=== PATIENT | female | born 1955 | race Caucasian/White ===

== ENCOUNTER 2018-11-12 06:51 | Inpatient (IN) ==
--- NOTE | 2018-11-12 07:10 | Emergency Department Note ---
Disposition Clinical Impression: Neurological deficit present, Acute cystitis with hematuria Disposition: Admitted As Inpatient Condition: Good Time of Disposition: 10:04 General Adult HPI - General Chief complaint: ED Neuro Symptoms/Deficit Stated complaint: weakness Time Seen by Provider: 11/12/18 07:00 Source: patient, EMS Limitations: no limitations Nursing Notes Reviewed: Yes Vital Signs Reviewed: Yes - History of Present Illness Pain Scale: 0 - Related Data Home Medications Medication Instructions Recorded Confirmed Metoprolol XL (24 HR) Succ [Toprol 50 mg PO DAILY 08/21/16 11/12/18 Xl] Aspirin Enteric Coated [Aspirin EC] 81 mg PO DAILY 01/11/17 11/12/18 Allopurinol [Zyloprim 300 MG] 300 mg PO DAILY 11/12/18 11/12/18 Atorvastatin [Lipitor] 20 mg PO HS 11/12/18 11/12/18 Brimonidine 0.2% [Alphagan] 1 drop BOTH EYES TID 11/12/18 11/12/18 Cetirizine HCl [Allergy Relief] 10 mg PO DAILY 11/12/18 11/12/18 DULoxetine [Cymbalta] 30 mg PO DAILY 11/12/18 11/12/18 Latanoprost 0.005% Eye Drop 0.005 % BOTH EYES HS 11/12/18 11/12/18 Lisinopril-HCTZ 20-12.5 [Prinzide 12.5 mg PO DAILY 11/12/18 11/12/18 20-12.5] Magnesium Oxide [Mag-Oxide 400 mg PO HS PRN 11/12/18 11/12/18 Magnesium] Montelukast [Singulair] 10 mg PO DAILY 11/12/18 11/12/18 Omeprazole [PriLOSEC] 40 mg PO DAILY 11/12/18 11/12/18 Oxybutynin [Ditropan] 10 mg PO DAILY 11/12/18 11/12/18 Ranitidine HCl [Acid Barrel Roller Operator] 150 mg PO HS 11/12/18 11/12/18 Previous Rx's Medication Instructions Recorded Folic Acid 1 mg PO DAILY #30 tablet 10/14/18 Allergies Allergy/AdvReac Type Severity Reaction Status Date / Time acetaminophen Allergy Hives Verified 08/19/18 13:56 [From [facility]-N 100] ibuprofen Allergy See Verified 08/19/18 13:56 Comments Penicillins Allergy Hives Verified 08/19/18 13:56 propoxyphene Allergy Hives Verified 08/19/18 13:56 [From [facility]-N 100] Past Medical History - Past Medical History Medical history: Reports: asthma, hypertension, other Surgical history: Reports: cholecystectomy, hip replacement, other Psychiatric history: Reports: anxiety, depression EDUCATION MANAGER history: Reports: no EDUCATION MANAGER history - Social History Smoking Status: Never smoker Smokeless Tobacco Status: No Alcohol use: Reports: none Drug use: Reports: none Physical Exam - General Limitations: no limitations General appearance: alert, in no apparent distress Course Vital Signs Temperature 99.8 F H 11/12/18 06:56 Pulse Rate 131 11/12/18 06:56 Respiratory Rate 20 11/12/18 06:56 Blood Pressure 124/81 11/12/18 06:56 O2 Sat by Pulse Oximetry 93 11/12/18 06:56 Temperature 100.4 F H 11/12/18 16:20 Pulse Rate 88 11/12/18 16:20 Respiratory Rate 18 11/12/18 16:20 Blood Pressure 129/76 11/12/18 16:20 O2 Sat by Pulse Oximetry 94 11/12/18 16:20 Oxygen Delivery Oxygen Delivery Nasal Cannula Medical Decision Making - MDM Narrative Medical decision making narrative: I reviewed the residents documentation and agree with the residents assessment and plan of care. I have personally had face to face time with the patient. (Brief History, Brief Exam, and MDM) I personally supervised and was present for the sy/critical portions of the following procedures completed by the SENIOR RESEARCH FELLOW: EKG was reviewed and interpreted by Adi Alvarez under my supervision, agree with his interpretation. Head CT 11/12/18 07:03 IMPRESSION: No acute intracranial abnormality. D/ / 11/12/2018 07:36:12 Brice Min MD / [facility] Interpreting Provider: Brice Min MD Chest X-Ray 11/12/18 07:07 IMPRESSION: 1. No active pulmonary disease. D/ / Dillon Lin MD / Dillon Lin MD Interpreting Provider: Dillon Lin MD Patient CT is negative. Tele-stroke evaluated her and decided that she was not having likely an acute stroke. They thought she could be admitted here waiting on her labs and will speak with neurology and hospitalist. 0900 hrs.: We will start her on aspirin since she has elevated troponin with her TIA symptoms. Hospitalist as accepted her to his service. - Lab Data Result diagrams: 11/12/18 07:05 11/12/18 07:05 Lab Results 11/12/18 11/12/18 11/12/18 Range/Units 07:05 07:05 07:05 WBC 10.6 (4.3-11.1) K/mcL RBC 3.81 L (3.82-4.97) M/mcL Hgb 10.6 L (11.5-15.4) g/dL Hct 32.2 L (35.3-44.9) % MCV 84.5 (83.0-100.0) fL MCH 27.8 L (28.0-33.3) pg MCHC 32.9 (31.6-35.5) g/dL RDW 14.3 (11.5-14.5) % Plt Count 164 (140-400) K/mcL MPV 9.9 (9.4-12.4) fL PT 14.9 H (9.4-12.1) Seconds INR 1.3 APTT 29.2 (26.0-36.0) Seconds VBG pH (7.32-7.42) pH Units VBG pCO2 (41-51) mmHg VBG pO2 (25-50) mmHg VBG HCO3 (21-27) mEq/L Sodium 130 L (136-145) mEq/L Potassium 3.5 (3.5-5.1) mEq/L Chloride 93 L (98-107) mEq/L Carbon Dioxide 25 (23-29) mEq/L BUN 24 H (8-23) mg/dL Creatinine 1.63 H (0.60-1.20) mg/dL Est GFR ( Amer) 39 L (> 60) Est GFR (Non-Af Amer) 32 L (> 60) BUN/Creatinine Ratio 15 (6-26) Glucose 453 H (70-105) mg/dL Calculated Osmolality 294 (280-300) Lactic Acid (0.5-2.2) mmol/L Calcium 8.7 (8.6-10.3) mg/dL Magnesium 1.2 L (1.6-2.6) mg/dL Troponin I 0.04 H* (< 0.04) ng/mL Beta-Hydroxybutyric Acd (0.02-0.27) mmol/L Urine Color (Yellow) Urine Clarity (Clear) Urine pH (5.0-8.0) pH Units Ur Specific [place] (1.010-1.025) Urine Protein (Neg-Trace) mg/dL Urine Glucose (UA) (Normal) mg/dL Urine Ketones (Negative) mg/dL Urine Blood (Negative) Urine Nitrite (Negative) Urine Bilirubin (Negative) Urine Urobilinogen (Normal) mg/dL Ur Leukocyte Esterase (Negative) Urine Microscopic RBC (0-3) per hpf Urine Microscopic WBC (0-3) per hpf Ur Squamous Epith Cells (None-Few) per lpf Urine Bacteria (None-Few) per hpf Hyaline Casts (None-Few) per lpf Ur Culture Indicated? (NO) 11/12/18 11/12/18 11/12/18 Range/Units 07:47 08:08 08:46 WBC (4.3-11.1) K/mcL RBC (3.82-4.97) M/mcL Hgb (11.5-15.4) g/dL Hct (35.3-44.9) % MCV (83.0-100.0) fL MCH (28.0-33.3) pg MCHC (31.6-35.5) g/dL RDW (11.5-14.5) % Plt Count (140-400) K/mcL MPV (9.4-12.4) fL PT (9.4-12.1) Seconds INR APTT (26.0-36.0) Seconds VBG pH 7.51 H (7.32-7.42) pH Units VBG pCO2 29 L (41-51) mmHg VBG pO2 196 H (25-50) mmHg VBG HCO3 23 (21-27) mEq/L Sodium (136-145) mEq/L Potassium (3.5-5.1) mEq/L Chloride (98-107) mEq/L Carbon Dioxide (23-29) mEq/L BUN (8-23) mg/dL Creatinine (0.60-1.20) mg/dL Est GFR ( Amer) (> 60) Est GFR (Non-Af Amer) (> 60) BUN/Creatinine Ratio (6-26) Glucose (70-105) mg/dL Calculated Osmolality (280-300) Lactic Acid 1.2 (0.5-2.2) mmol/L Calcium (8.6-10.3) mg/dL Magnesium (1.6-2.6) mg/dL Troponin I (< 0.04) ng/mL Beta-Hydroxybutyric Acd 0.49 H (0.02-0.27) mmol/L Urine Color (Yellow) Urine Clarity (Clear) Urine pH (5.0-8.0) pH Units Ur Specific [place] (1.010-1.025) Urine Protein (Neg-Trace) mg/dL Urine Glucose (UA) (Normal) mg/dL Urine Ketones (Negative) mg/dL Urine Blood (Negative) Urine Nitrite (Negative) Urine Bilirubin (Negative) Urine Urobilinogen (Normal) mg/dL Ur Leukocyte Esterase (Negative) Urine Microscopic RBC (0-3) per hpf Urine Microscopic WBC (0-3) per hpf Ur Squamous Epith Cells (None-Few) per lpf Urine Bacteria (None-Few) per hpf Hyaline Casts (None-Few) per lpf Ur Culture Indicated? (NO) 11/12/18 11/12/18 Range/Units 10:01 10:53 WBC (4.3-11.1) K/mcL RBC (3.82-4.97) M/mcL Hgb (11.5-15.4) g/dL Hct (35.3-44.9) % MCV (83.0-100.0) fL MCH (28.0-33.3) pg MCHC (31.6-35.5) g/dL RDW (11.5-14.5) % Plt Count (140-400) K/mcL MPV (9.4-12.4) fL PT (9.4-12.1) Seconds INR APTT (26.0-36.0) Seconds VBG pH (7.32-7.42) pH Units VBG pCO2 (41-51) mmHg VBG pO2 (25-50) mmHg VBG HCO3 (21-27) mEq/L Sodium (136-145) mEq/L Potassium (3.5-5.1) mEq/L Chloride (98-107) mEq/L Carbon Dioxide (23-29) mEq/L BUN (8-23) mg/dL Creatinine (0.60-1.20) mg/dL Est GFR ( Amer) (> 60) Est GFR (Non-Af Amer) (> 60) BUN/Creatinine Ratio (6-26) Glucose (70-105) mg/dL Calculated Osmolality (280-300) Lactic Acid (0.5-2.2) mmol/L Calcium (8.6-10.3) mg/dL Magnesium (1.6-2.6) mg/dL Troponin I 0.03 (< 0.04) ng/mL Beta-Hydroxybutyric Acd (0.02-0.27) mmol/L Urine Color Yellow (Yellow) Urine Clarity Cloudy A (Clear) Urine pH 5.0 (5.0-8.0) pH Units Ur Specific [place] 1.029 H (1.010-1.025) Urine Protein 30 H (Neg-Trace) mg/dL Urine Glucose (UA) >=1000 H (Normal) mg/dL Urine Ketones Negative (Negative) mg/dL Urine Blood Moderate H (Negative) Urine Nitrite Negative (Negative) Urine Bilirubin Negative (Negative) Urine Urobilinogen Normal (Normal) mg/dL Ur Leukocyte Esterase Moderate H (Negative) Urine Microscopic RBC 5-15 H (0-3) per hpf Urine Microscopic WBC TNTC H (0-3) per hpf Ur Squamous Epith Cells Many H (None-Few) per lpf Urine Bacteria Many H (None-Few) per hpf Hyaline Casts Few (None-Few) per lpf Ur Culture Indicated? YES A (NO) Attestation Statement - Attestation Attestation: This documentation is done with the assistance of Dragon dictation. Despite efforts made to ensure accuracy, there may be inaccuracies in oil well service unit operator or s pelling and typographical errors. I have personally performed a face to face evaluation on this patient. I have reviewed and agree with the care plan. History and Exam by me shows: Patient presents today with weakness on the left which seems intermittent. She says this started at 8:00 last night. She has no other focal deficits. Has no headache. No blurry vision. Not any difficulty walking. Physical psychiatric history. Because she is within 24 hours of the protocol for [facility] we will call her stroke alert. She is outside the window for TPA. We will await CT and tele-radiology evaluation with [facility]. Patient was seen today by Adi Alvarez the nurse practitioner and myself I agree with his evaluation management plan.
--- NOTE | 2018-11-12 07:10 | Emergency Department Note ---
Disposition Clinical Impression: Neurological deficit present, Acute cystitis with hematuria Disposition: Admitted As Inpatient Condition: Good Referrals: Mabel Bundy DO [Primary Care Provider] - Forms: ED Satisfaction Letter Time of Disposition: 13:42 Neuro HPI - General Chief Complaint: ED Neuro Symptoms/Deficit Stated Complaint: weakness Time Seen by Provider: 11/12/18 07:00 Source: patient, EMS Mode of arrival: EMS Limitations: no limitations Nursing Notes Reviewed: Yes Vital Signs Reviewed: Yes - History of Present Illness HPI Narrative: Alert and oriented nontoxic-appearing 63-year-old female with a history of poorly controlled diabetes, hypertension, and hyperlipidemia presents from home by EMS for evaluation of a sensation of slurred speech, blurred vision from the left eye, and numbness/tingling/weakness of the left upper and lower extremities. She states that symptoms had an abrupt onset yesterday evening at 8:00 PM. When her home health nurse arrived to her residence this morning, she discussed her symptoms with the nurse and was advised to present emergency department further evaluation. She denies any injury or trauma. She denies any chest pain or shortness of breath. She denies any abdominal pain, nausea, vomiting. She does state that she has had a mild intermittent nonproductive c ough. She states that she is felt generally ill for the past couple of days. She complains of subjective fevers at home as well. Onset of Symptoms Date: 11/11/18 Onset of Symptoms Time: 20:00 Location: speech, dysarthria, left arm, left leg, other (Blurred vision, left eye) Severity: mild Quality: weakness, numbness, tingling Symptoms Improving: No Improves with: none Worsens with: none Context: sudden onset On Anticoagulants: No Associated symptoms: Reports: cough, fever/chills. Denies: chest pain, nausea/vomiting Treatments Prior to Arrival: none - Related Data Home Medications: Home Medications Medication Instructions Recorded Confirmed Metoprolol XL (24 HR) Succ [Toprol 50 mg PO DAILY 08/21/16 11/12/18 Xl] Aspirin Enteric Coated [Aspirin EC] 81 mg PO DAILY 01/11/17 11/12/18 Allopurinol [Zyloprim 300 MG] 300 mg PO DAILY 11/12/18 11/12/18 Atorvastatin [Lipitor] 20 mg PO HS 11/12/18 11/12/18 Brimonidine 0.2% [Alphagan] 1 drop BOTH EYES TID 11/12/18 11/12/18 Cetirizine HCl [Allergy Relief] 10 mg PO DAILY 11/12/18 11/12/18 DULoxetine [Cymbalta] 30 mg PO DAILY 11/12/18 11/12/18 Latanoprost 0.005% Eye Drop 0.005 % BOTH EYES HS 11/12/18 11/12/18 Lisinopril-HCTZ 20-12.5 [Prinzide 12.5 mg PO DAILY 11/12/18 11/12/18 20-12.5] Magnesium Oxide [Mag-Oxide 400 mg PO HS PRN 11/12/18 11/12/18 Magnesium] Montelukast [Singulair] 10 mg PO DAILY 11/12/18 11/12/18 Omeprazole [PriLOSEC] 40 mg PO DAILY 11/12/18 11/12/18 Oxybutynin [Ditropan] 10 mg PO DAILY 11/12/18 11/12/18 Ranitidine HCl [Acid Contract Driver] 150 mg PO HS 11/12/18 11/12/18 Previous Rx's Medication Instructions Recorded Folic Acid 1 mg PO DAILY #30 tablet 10/14/18 Allergies/Adverse Reactions: Allergies Allergy/AdvReac Type Severity Reaction Status Date / Time acetaminophen Allergy Hives Verified 08/19/18 13:56 [From Darvocet-N 100] ibuprofen Allergy See Verified 08/19/18 13:56 Comments Penicillins Allergy Hives Verified 08/19/18 13:56 propoxyphene Allergy Hives Verified 08/19/18 13:56 [From [facility]-N 100] All systems ED: reviewed and negative except as stated. Review of Systems: As Per HPI Constitutional: Reports: as per HPI, fever. Denies: chills, weakness, weight change Eyes: Reports: as per HPI, vision change. Denies: eye pain, eye discharge ENT ED: Denies: ear pain, throat pain, dental pain, hearing loss, epistaxis, congestion, dysphagia Cardiovascular: Denies: chest pain, palpitations, dyspnea on exertion, edema, syncope Respiratory: Reports: as per HPI, cough. Denies: dyspnea, wheezes, hemoptysis, stridor, sputum production Gastrointestinal: Denies: abdominal pain, nausea, vomiting, diarrhea, constipation, hematemesis, melena, hematochezia Genitourinary: Denies: dysuria, frequency, hematuria, discharge Musculoskeletal: Denies: back pain, neck pain, arthralgia, myalgia Integumentary: Denies: rash, abrasion, lesions Neurological: Reports: as per HPI, weakness, numbness, paresthesias, other (Blurred vision left eye, sensation of slurred speech.). Denies: headache, confusion, abnormal gait, vertigo Psychiatric: Denies: anxiety, depression, suicidal thoughts, homicidal thoughts, auditory hallucinations, visual hallucinations Endocrine: Denies: fatigue Hematological/Lymphatic: Denies: easy bleeding, easy bruising Allergic/Immunologic: Denies: facial swelling, urticaria Past Medical History - Past Medical History Attestation: Yes The following information was validated with the patient. 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 Absent: conjunctival inject ion - ENT ENT exam: mucous membranes moist - Neck Neck exam: Present: normal inspection, full ROM - Chest Chest inspection: Present: normal inspection, symmetric chest wall rise - Respiratory Respiratory exam: Present: normal lung sounds bilaterally. Absent: respiratory distress, wheezes, stridor, accessory muscle use, prolonged expiratory phase - Cardiovascular Cardiovascular exam: Present: regular rate, normal rhythm, normal heart sounds - Abdominal Exam Abdominal exam: Present: soft, Non-Tender, normal bowel sounds - Extremities Exam Extremities exam: Present: normal inspection, full ROM - Back Exam Back exam: Present: normal inspection - Neurological Exam Neurological exam: Present: alert, oriented X3 - Expanded Neurological Exam Patient oriented to: Present: person, place, time Speech: Present: fluid speech Cranial nerves: EOM function (II, III, IV, ): Normal Motor strength - LUE: 4/5 Motor strength - RUE: 5/5 Motor strength - LLE: 5/5 Motor strength - RLE: 5/5 Upper motor neuron exam: sensory extinction: Absent bilaterally Sensory exam upper extremity: light touch: Normal Sensory exam lower extremity: light touch: Abnormal Left (Hyperesthesia of the left lower extremity) Coma Scale Eye Opening: Spontaneous Coma Scale Motor Response: Obeys Commands Coma Scale Verbal Response: Oriented Coma Scale Total: 15 - Psychiatric Psychiatric exam: Present: normal affect, normal mood - Skin Skin exam: Present: warm, dry, intact, normal color. Absent: rash, cyanosis, diaphoresis, pallor, mottled Course Course Narrative: 07: Stroke alert called. Symptom onset 8:00 PM last night. She has an NIH stroke scale score of 2. The patient complains of a sensation of slurred speech, blurred vision from the left eye, and numbness/tingling/weakness of both the left upper and lower extremities. Her home medications were reviewed. She is on low-dose aspirin but no other anticoagulants. I have discussed this patient's case with Dr. Real, ED attending. He has had a [id number] evaluation with patient and agrees with this plan. 0722: I received a call from Dr. Min with [facility]. She reads the preliminary head CT as negative. No obvious hemorrhage or infarct. 0732: Telestroke conference completed with Dr. Pacheco, neurologist from [facility]. He recommends admission to the hospitalist service for complete stroke workup. No emergent interventions recommended at this time. The patient was involved with this decision and verbalizes an understanding of and agreement with this plan. 1340: I spoke with Dr. Berger of the hospitalist service who has accepted the patient for admission to the hospitalist care. Vital Signs Temperature 99.8 F H 11/12/18 06:56 Pulse Rate 131 11/12/18 06:56 Respiratory Rate 20 11/12/18 06:56 Blood Pressure 124/81 11/12/18 06:56 O2 Sat by Pulse Oximetry 93 11/12/18 06:56 Temperature 99.8 F H 11/12/18 07:15 Pulse Rate 93 11/12/18 12:18 Respiratory Rate 16 11/12/18 12:18 Blood Pressure 119/76 11/12/18 12:18 O2 Sat by Pulse Oximetry 97 11/12/18 12:18 Oxygen Delivery Oxygen Delivery Nasal Cannula Neuro Symptoms/Deficit - Medical Records Medical records reviewed: Yes I reviewed the patient's medical records. - Lab Data Lab results reviewed: Yes I reviewed the patient's lab results. Lab results narrative: Lab Results 11/12/18 11/12/18 11/12/18 Range/Units 07:05 07:05 07:05 WBC 10.6 (4.3-11.1) K/mcL RBC 3.81 L (3.82-4.97) M/mcL Hgb 10.6 L (11.5-15.4) g/dL Hct 32.2 L (35.3-44.9) % MCV 84.5 (83.0-100.0) fL MCH 27.8 L (28.0-33.3) pg MCHC 32.9 (31.6-35.5) g/dL RDW 14.3 (11.5-14.5) % Plt Count 164 (140-400) K/mcL MPV 9.9 (9.4-12.4) fL PT 14.9 H (9.4-12.1) Seconds INR 1.3 APTT 29.2 (26.0-36.0) Seconds VBG pH (7.32-7.42) pH Units VBG pCO2 (41-51) mmHg VBG pO2 (25-50) mmHg VBG HCO3 (21-27) mEq/L Sodium 130 L (136-145) mEq/L Potassium 3.5 (3.5-5.1) mEq/L Chloride 93 L (98-107) mEq/L Carbon Dioxide 25 (23-29) mEq/L BUN 24 H (8-23) mg/dL Creatinine 1.63 H (0.60-1.20) mg/dL Est GFR ( Amer) 39 L (> 60) Est GFR (Non-Af Amer) 32 L (> 60) BUN/Creatinine Ratio 15 (6-26) Glucose 453 H (70-105) mg/dL Calculated Osmolality 294 (280-300) Lactic Acid (0.5-2.2) mmol/L Calcium 8.7 (8.6-10.3) mg/dL Magnesium 1.2 L (1.6-2.6) mg/dL Troponin I 0.04 H* (< 0.04) ng/mL Beta-Hydroxybutyric Acd (0.02-0.27) mmol/L Urine Color (Yellow) Urine Clarity (Clear) Urine pH (5.0-8.0) pH Units Ur Specific Rudy (1.010-1.025) Urine Protein (Neg-Trace) mg/dL Urine Glucose (UA) (Normal) mg/dL Urine Ketones (Negative) mg/dL Urine Blood (Negative) Urine Nitrite (Negative) Urine Bilirubin (Negative) Urine Urobilinogen (Normal) mg/dL Ur Leukocyte Esterase (Negative) Urine Microscopic RBC (0-3) per hpf Urine Microscopic WBC (0-3) per hpf Ur Squamous Epith Cells (None-Few) per lpf Urine Bacteria (None-Few) per hpf Hyaline Casts (None-Few) per lpf Ur Culture Indicated? (NO) 11/12/18 11/12/18 11/12/18 Range/Units 07:47 08:08 08:46 WBC (4.3-11.1) K/mcL RBC (3.82-4.97) M/mcL Hgb (11.5-15.4) g/dL Hct (35.3-44.9) % MCV (83.0-100.0) fL MCH (28.0-33.3) pg MCHC (31.6-35.5) g/dL RDW (11.5-14.5) % Plt Count (140-400) K/mcL MPV (9.4-12.4) fL PT (9.4-12.1) Seconds INR APTT (26.0-36.0) Seconds VBG pH 7.51 H (7.32-7.42) pH Units VBG pCO2 29 L (41-51) mmHg VBG pO2 196 H (25-50) mmHg VBG HCO3 23 (21-27) mEq/L Sodium (136-145) mEq/L Potassium (3.5-5.1) mEq/L Chloride (98-107) mEq/L Carbon Dioxide (23-29) mEq/L BUN (8-23) mg/dL Creatinine (0.60-1.20) mg/dL Est GFR ( Amer) (> 60) Est GFR (Non-Af Amer) (> 60) BUN/Creatinine Ratio (6-26) Glucose (70-105) mg/dL Calculated Osmolality (280-300) Lactic Acid 1.2 (0.5-2.2) mmol/L Calcium (8.6-10.3) mg/dL Magnesium (1.6-2.6) mg/dL Troponin I (< 0.04) ng/mL Beta-Hydroxybutyric Acd 0.49 H (0.02-0.27) mmol/L Urine Color (Yellow) Urine Clarity (Clear) Urine pH (5.0-8.0) pH Units Ur Specific Rudy (1.010-1.025) Urine Protein (Neg-Trace) mg/dL Urine Glucose (UA) (Normal) mg/dL Urine Ketones (Negative) mg/dL Urine Blood (Negative) Urine Nitrite (Negative) Urine Bilirubin (Negative) Urine Urobilinogen (Normal) mg/dL Ur Leukocyte Esterase (Negative) Urine Microscopic RBC (0-3) per hpf Urine Microscopic WBC (0-3) per hpf Ur Squamous Epith Cells (None-Few) per lpf Urine Bacteria (None-Few) per hpf Hyaline Casts (None-Few) per lpf Ur Culture Indicated? (NO) 11/12/18 11/12/18 Range/Units 10:01 10:53 WBC (4.3-11.1) K/mcL RBC (3.82-4.97) M/mcL Hgb (11.5-15.4) g/dL Hct (35.3-44.9) % MCV (83.0-100.0) fL MCH (28.0-33.3) pg MCHC (31.6-35.5) g/dL RDW (11.5-14.5) % Plt Count (140-400) K/mcL MPV (9.4-12.4) fL PT (9.4-12.1) Seconds INR APTT (26.0-36.0) Seconds VBG pH (7.32-7.42) pH Units VBG pCO2 (41-51) mmHg VBG pO2 (25-50) mmHg VBG HCO3 (21-27) mEq/L Sodium (136-145) mEq/L Potassium (3.5-5.1) mEq/L Chloride (98-107) mEq/L Carbon Dioxide (23-29) mEq/L BUN (8-23) mg/dL Creatinine (0.60-1.20) mg/dL Est GFR ( Amer) (> 60) Est GFR (Non-Af Amer) (> 60) BUN/Creatinine Ratio (6-26) Glucose (70-105) mg/dL Calculated Osmolality (280-300) Lactic Acid (0.5-2.2) mmol/L Calcium (8.6-10.3) mg/dL Magnesium (1.6-2.6) mg/dL Troponin I 0.03 (< 0.04) ng/mL Beta-Hydroxybutyric Acd (0.02-0.27) mmol/L Urine Color Yellow (Yellow) Urine Clarity Cloudy A (Clear) Urine pH 5.0 (5.0-8.0) pH Units Ur Specific Rudy 1.029 H (1.010-1.025) Urine Protein 30 H (Neg-Trace) mg/dL Urine Glucose (UA) >=1000 H (Normal) mg/dL Urine Ketones Negative (Negative) mg/dL Urine Blood Moderate H (Negative) Urine Nitrite Negative (Negative) Urine Bilirubin Negative (Negative) Urine Urobilinogen Normal (Normal) mg/dL Ur Leukocyte Esterase Moderate H (Negative) Urine Microscopic RBC 5-15 H (0-3) per hpf Urine Microscopic WBC TNTC H (0-3) per hpf Ur Squamous Epith Cells Many H (None-Few) per lpf Urine Bacteria Many H (None-Few) per hpf Hyaline Casts Few (None-Few) per lpf Ur Culture Indicated? YES A (NO) Result diagrams: 11/12/18 07:05 11/12/18 07:05 Lab Results 11/12/18 11/12/18 11/12/18 Range/Units 07:05 07:05 07:05 WBC 10.6 (4.3-11.1) K/mcL RBC 3.81 L (3.82-4.97) M/mcL Hgb 10.6 L (11.5-15.4) g/dL Hct 32.2 L (35.3-44.9) % MCV 84.5 (83.0-100.0) fL MCH 27.8 L (28.0-33.3) pg MCHC 32.9 (31.6-35.5) g/dL RDW 14.3 (11.5-14.5) % Plt Count 164 (140-400) K/mcL MPV 9.9 (9.4-12.4) fL PT 14.9 H (9.4-12.1) Seconds INR 1.3 APTT 29.2 (26.0-36.0) Seconds VBG pH (7.32-7.42) pH Units VBG pCO2 (41-51) mmHg VBG pO2 (25-50) mmHg VBG HCO3 (21-27) mEq/L Sodium 130 L (136-145) mEq/L Potassium 3.5 (3.5-5.1) mEq/L Chloride 93 L (98-107) mEq/L Carbon Dioxide 25 (23-29) mEq/L BUN 24 H (8-23) mg/dL Creatinine 1.63 H (0.60-1.20) mg/dL Est GFR ( Amer) 39 L (> 60) Est GFR (Non-Af Amer) 32 L (> 60) BUN/Creatinine Ratio 15 (6-26) Glucose 453 H (70-105) mg/dL Calculated Osmolality 294 (280-300) Lactic Acid (0.5-2.2) mmol/L Calcium 8.7 (8.6-10.3) mg/dL Magnesium 1.2 L (1.6-2.6) mg/dL Troponin I 0.04 H* (< 0.04) ng/mL Beta-Hydroxybutyric Acd (0.02-0.27) mmol/L Urine Color (Yellow) Urine Clarity (Clear) Urine pH (5.0-8.0) pH Units Ur Specific Rudy (1.010-1.025) Urine Protein (Neg-Trace) mg/dL Urine Glucose (UA) (Normal) mg/dL Urine Ketones (Negative) mg/dL Urine Blood (Negative) Urine Nitrite (Negative) Urine Bilirubin (Negative) Urine Urobilinogen (Normal) mg/dL Ur Leukocyte Esterase (Negative) Urine Microscopic RBC (0-3) per hpf Urine Microscopic WBC (0-3) per hpf Ur Squamous Epith Cells (None-Few) per lpf Urine Bacteria (None-Few) per hpf Hyaline Casts (None-Few) per lpf Ur Culture Indicated? (NO) 11/12/18 11/12/18 11/12/18 Range/Units 07:47 08:08 08:46 WBC (4.3-11.1) K/mcL RBC (3.82-4.97) M/mcL Hgb (11.5-15.4) g/dL Hct (35.3-44.9) % MCV (83.0-100.0) fL MCH (28.0-33.3) pg MCHC (31.6-35.5) g/dL RDW (11.5-14.5) % Plt Count (140-400) K/mcL MPV (9.4-12.4) fL PT (9.4-12.1) Seconds INR APTT (26.0-36.0) Seconds VBG pH 7.51 H (7.32-7.42) pH Units VBG pCO2 29 L (41-51) mmHg VBG pO2 196 H (25-50) mmHg VBG HCO3 23 (21-27) mEq/L Sodium (136-145) mEq/L Potassium (3.5-5.1) mEq/L Chloride (98-107) mEq/L Carbon Dioxide (23-29) mEq/L BUN (8-23) mg/dL Creatinine (0.60-1.20) mg/dL Est GFR ( Amer) (> 60) Est GFR (Non-Af Amer) (> 60) BUN/Creatinine Ratio (6-26) Glucose (70-105) mg/dL Calculated Osmolality (280-300) Lactic Acid 1.2 (0.5-2.2) mmol/L Calcium (8.6-10.3) mg/dL Magnesium (1.6-2.6) mg/dL Troponin I (< 0.04) ng/mL Beta-Hydroxybutyric Acd 0.49 H (0.02-0.27) mmol/L Urine Color (Yellow) Urine Clarity (Clear) Urine pH (5.0-8.0) pH Units Ur Specific Rudy (1.010-1.025) Urine Protein (Neg-Trace) mg/dL Urine Glucose (UA) (Normal) mg/dL Urine Ketones (Negative) mg/dL Urine Blood (Negative) Urine Nitrite (Negative) Urine Bilirubin (Negative) Urine Urobilinogen (Normal) mg/dL Ur Leukocyte Esterase (Negative) Urine Microscopic RBC (0-3) per hpf Urine Microscopic WBC (0-3) per hpf Ur Squamous Epith Cells (None-Few) per lpf Urine Bacteria (None-Few) per hpf Hyaline Casts (None-Few) per lpf Ur Culture Indicated? (NO) 11/12/18 11/12/18 Range/Units 10:01 10:53 WBC (4.3-11.1) K/mcL RBC (3.82-4.97) M/mcL Hgb (11.5-15.4) g/dL Hct (35.3-44.9) % MCV (83.0-100.0) fL MCH (28.0-33.3) pg MCHC (31.6-35.5) g/dL RDW (11.5-14.5) % Plt Count (140-400) K/mcL MPV (9.4-12.4) fL PT (9.4-12.1) Seconds INR APTT (26.0-36.0) Seconds VBG pH (7.32-7.42) pH Units VBG pCO2 (41-51) mmHg VBG pO2 (25-50) mmHg VBG HCO3 (21-27) mEq/L Sodium (136-145) mEq/L Potassium (3.5-5.1) mEq/L Chloride (98-107) mEq/L Carbon Dioxide (23-29) mEq/L BUN (8-23) mg/dL Creatinine (0.60-1.20) mg/dL Est GFR ( Amer) (> 60) Est GFR (Non-Af Amer) (> 60) BUN/Creatinine Ratio (6-26) Glucose (70-105) mg/dL Calculated Osmolality (280-300) Lactic Acid (0.5-2.2) mmol/L Calcium (8.6-10.3) mg/dL Magnesium (1.6-2.6) mg/dL Troponin I 0.03 (< 0.04) ng/mL Beta-Hydroxybutyric Acd (0.02-0.27) mmol/L Urine Color Yellow (Yellow) Urine Clarity Cloudy A (Clear) Urine pH 5.0 (5.0-8.0) pH Units Ur Specific Rudy 1.029 H (1.010-1.025) Urine Protein 30 H (Neg-Trace) mg/dL Urine Glucose (UA) >=1000 H (Normal) mg/dL Urine Ketones Negative (Negative) mg/dL Urine Blood Moderate H (Negative) Urine Nitrite Negative (Negative) Urine Bilirubin Negative (Negative) Urine Urobilinogen Normal (Normal) mg/dL Ur Leukocyte Esterase Moderate H (Negative) Urine Microscopic RBC 5-15 H (0-3) per hpf Urine Microscopic WBC TNTC H (0-3) per hpf Ur Squamous Epith Cells Many H (None-Few) per lpf Urine Bacteria Many H (None-Few) per hpf Hyaline Casts Few (None-Few) per lpf Ur Culture Indicated? YES A (NO) - Radiology Data Radiology results reviewed: Yes I reviewed the patient's radiology results. Head CT 11/12/18 07:03 IMPRESSION: No acute intracranial abnormality. D/ / 11/12/2018 07:36:12 Brice Min MD / joe Interpreting Provider: Brice Min MD Chest X-Ray 11/12/18 07:07 IMPRESSION: 1. No active pulmonary disease. D/ / Dillon Lin MD / Dillon Lin MD Interpreting Provider: Dillon Lin MD - EKG Data EKG attestation: Yes I reviewed and interpreted this EKG. EKG results narrative: EKG shows a sinus tachycardia at a rate of 129 bpm. UT interval 157, QRS duration 96, QT/QTc interval 316/463. No ectopy noted. No ST elevation or significant depressions. Aside from rate, no significant change in morphology of compared to an EKG dated from 09/27/15. NIH Stroke Scale - Level of Consciousness LOC: Alert - LOC Questions LOC Questions: Answers both correctly - LOC Commands LOC Commands: Performs both correctly - Best Gaze Best Gaze: Normal - Visual Visual: No visual loss - Facial Palsy Facial Palsy: Normal - Motor Arms Motor Arm-Left: No drift for 10 seconds Motor Arm-Right: No drift for 10 seconds - Motor Legs Motor Leg-Left: Drift, does NOT hit bed Motor Leg-Right: No drift for 5 seconds - Limb Ataxia Limb Ataxia: Normal, No Ataxia - Sensory Sensory: Normal - Best Language Best Language: No aphasia - Dysarthria Dysarthria: Mild, slurs some words - Extinction and Inattention Extinction and Inattention: Normal - NIHSS Total Score NIHSS Total Score: 2 TPA Checklist - LKW: 3-4.5 hrs Add. Warnings/Precautions Patient/family understanding: The patient/family members have been counseled and understood the risk, benefit, and alternatives of treatment.
[2018-11-12 07:21] LABS: Hematocrit 32.2 % (35.3-44.9); Hemoglobin 10.6 g/dL (11.5-15.4); Mean Corpuscular HGB Conc 32.9 g/dL (31.6-35.5); Mean Corpuscular Hemoglobin 27.8 pg (28.0-33.3); Mean Corpuscular Volume 84.5 fL (83.0-100.0); Mean Platelet Volume 9.9 fL (9.4-12.4); Platelet Count 164 K/mcL (140-400); Red Blood Count 3.81 M/mcL (3.82-4.97); Red Cell Distribution Width 14.3 % (11.5-14.5); White Blood Count 10.6 K/mcL (4.3-11.1)
[2018-11-12 07:28] LABS: INR 1.3; Prothrombin Time 14.9 Seconds (9.4-12.1)
[2018-11-12 07:31] LABS: Activated Partial Thrombo Time 29.2 Seconds (26.0-36.0)
[2018-11-12] MEDS ORDERED: Aspirin 81 MG TAB.CHEW PO ONE (07:33)
[2018-11-12] MEDS ORDERED: 0.9 % Sodium Chloride 1,000 ML IVC ONE ×2 (07:36→09:09)
[2018-11-12 07:41] LABS: Calcium 8.7 mg/dL (8.6-10.3); Potassium 3.5 mEq/L (3.5-5.1)
[2018-11-12 07:47] LABS: Troponin I 0.04 ng/mL (< 0.04)
[2018-11-12 08:53] LABS: VBG HCO3 23 mEq/L (21-27); VBG PCO2 29 mmHg (41-51); VBG PH 7.51 pH Units (7.32-7.42); VBG PO2 196 mmHg (25-50)
[2018-11-12] MEDS ORDERED: Insulin Regular, Human 100 UNIT/ML SQ ONE ×2 (09:09→11:00)
[2018-11-12 10:07] LABS: Magnesium 1.2 mg/dL (1.6-2.6)
[2018-11-12 10:11] LABS: Bilirubin,Urine Negative (Negative); Blood,Urine Moderate (Negative); Clarity,Urine Cloudy (Clear); Color,Urine Yellow (Yellow); Glucose,Urine (UA) >=1000 mg/dL (Normal); Ketones,Urine Negative (Negative); Leukocyte Esterase,Urine Moderate (Negative); Nitrite,Urine Negative (Negative); Protein,Urine 30 mg/dL (Neg-Trace); Specific Gravity,Urine 1.029 (1.010-1.025); Urobilinogen,Urine Normal (Normal)
[2018-11-12 10:13] LABS: Bacteria,Urine Many per hpf (None-Few); Hyaline Casts,Urine Few per lpf (None-Few); Squamous Epithelial Cell,Urine Many per lpf (None-Few); WBC,Urine TNTC per hpf (0-3)
--- NOTE | 2018-11-12 10:16 | Internal Med History&Physical ---
Date of Encounter: 11/12/18 Time of Encounter: 10:15 Internal Medicine - H&P: HPI History of present illness: 63-year-old female with a history of poorly controlled diabetes, hypertension, and hyperlipidemia, chronic kidney disease who presents from home for his strokelike symptoms. The patient stated that she had a sudden onset of blurred vision in the left eye is associated with numbness, tingling and weakness of the left and lower upper extremity as well as slurred speech. She stated that her symptoms started last night. Stroke alert was called and [facility] team was consulted, they stated that patient pattern of symptoms is not consistent possible CVA or TIA , and in any circumstances patient is out of window for thrombolytics. The patient is complaining of increased urgency and increased frequency of urination. She denies burning sensation or blood per urine. She denies abdominal pain, nausea, vomiting, chest pain, shortness of breath, palpitation, orthopnea, paroxysmal nocturnal dyspnea or progressive worsening of lower extremity edema. The patient was evaluated by the ER staff and her CT scan of the head was no significant abnormalities. Her laboratory data was damian dent for hyponatremia and elevated creatinine above her baseline as well as hyperglycemia. Urine analysis was obtained and was evident for possible urine urinary tract infection. The patient was admitted for further evaluation and management of possible TIA as well as UTI. Past Med Surg Social Fam HX - Past Medical History Medical history: asthma, diabetes, hypertension, other Additional medical history: "heart problems", "constant diarrhea" Psychiatric history: anxiety, depression - Past Surgical History Surgical History: cholecystectomy, hip replacement, other Additional surgical history: right kidney removed, bilat eye surgery - Social History Smoking Status: Never smoker Smokeless Tobacco Status: No Alcohol use: none Drug use: none - Family History Mother Hx Family Endocrine Disorder: Yes (DM) Internal Medicine - H&P: Meds Metoprolol XL (24 HR) Succ [Toprol Xl] 50 mg PO DAILY 08/21/16 [History] Aspirin Enteric Coated [Aspirin EC] 81 mg PO DAILY 01/11/17 [History] Folic Acid 1 mg PO DAILY #30 tablet 10/14/18 [Rx] Allopurinol [Zyloprim 300 MG] 300 mg PO DAILY 11/12/18 [History] Brimonidine 0.2% [Alphagan] 1 drop BOTH EYES TID 11/12/18 [History] Cetirizine HCl [Allergy Relief] 10 mg PO DAILY 11/12/18 [History] DULoxetine [Cymbalta] 30 mg PO DAILY 11/12/18 [History] Latanoprost [Xalatan] 2.5 ml OP DAILY #0 11/12/18 [History] Lisinopril-HCTZ 20-12.5 [Prinzide 20-12.5] 12.5 mg PO DAILY 11/12/18 [History] Magnesium Oxide [Mag-Oxide Magnesium] 400 mg PO HS PRN 11/12/18 [History] Montelukast [Singulair] 10 mg PO DAILY 11/12/18 [History] Omeprazole [PriLOSEC] 40 mg PO DAILY 11/12/18 [History] Oxybutynin [Ditropan] 10 mg PO DAILY 11/12/18 [History] Ranitidine HCl [Acid [employer]] 150 mg PO HS 11/12/18 [History] Amlodipine Besylate 10 mg PO DAILY 11/13/18 [History] Cholestyramine 4 gm PO BID 11/13/18 [History] Ciprofloxacin HCl [Cipro] 500 mg PO BID #8 tablet 11/13/18 [Rx] Diphenoxylate/Atropine [Lomotil 2.5 mg/0.025 mg] 2 each PO QID PRN 11/13/18 [History] Fluticasone Propionate Nasal [Flonase] 50 mcg NS DAILY 11/13/18 [History] Insulin Glargine,Hum.rec.anlog [Lantus Solostar] 10 unit SQ HS #2 insuln.pen 11/14/18 [Rx] glipiZIDE [Glucotrol] 5 mg PO BIDWM #60 tablet 11/14/18 [Rx] Allergy/AdvReac Type Severity Reaction Status Date / Time acetaminophen Allergy Hives Verified 11/13/18 13:03 [From Darvocet-N 100] ibuprofen Allergy See Verified 11/13/18 13:03 Comments Penicillins Allergy Hives Verified 11/13/18 13:03 propoxyphene Allergy Hives Verified 11/13/18 13:03 [From Darvocet-N 100] All Systems PM: A 10-system review of systems was performed and is negative for pertinent find ings except as documented above in the HPI. - Constitutional Vitals: Temp Pulse Resp BP Pulse Ox 99.8 F H 128 20 116/73 98 11/12/18 07:15 11/12/18 08:55 11/12/18 08:55 11/12/18 08:55 11/12/18 08:55 General appearance: Present: A&O X 3 Exam: ` - Head Head exam: Present: atraumatic, normocephalic - Neck Neck exam general surgery: Present: supple, trachea midline. Absent: lymphadenopathy - Respiratory Respiratory exam: Present: CTAB. Absent: accessory muscle use, rales, rhonchi, wheezes - Cardiovascular Cardiovascular exam: Present: RRR, +S1, +S2. Absent: diastolic murmur, gallop, rubs, systolic murmur - GI/Abdominal GI/Abdominal exam: Present: normal bowel sounds, soft, no peritoneal signs. Absent: distended, tenderness - Extremities Exam Extremities exam: Present: warm, radial pulses palpable and symmetrical. Absent: calf tenderness, cyanotic, pedal edema - Neurological Exam Neurological exam: Present: CN II-XII intact, oriented X3, no focal deficits. Absent: pronater drift, facial droop, speech deficit Internal Med - H&P Results - Labs CBC & Chem 7: 11/14/18 04:10 11/14/18 04:10 Labs: Short CBC 11/12/18 Range/Units 07:05 WBC 10.6 (4.3-11.1) K/mcL Hgb 10.6 L (11.5-15.4) g/dL Hct 32.2 L (35.3-44.9) % Plt Count 164 (140-400) K/mcL BMP 11/12/18 07:05 Sodium 130 L Potassium 3.5 Chloride 93 L Carbon Dioxide 25 BUN 24 H Creatinine 1.63 H Glucose 453 H Calcium 8.7 Cardiac Enzymes 11/12/18 Range/Units 07:05 Troponin I 0.04 H* (< 0.04) ng/mL Urine 11/12/18 Range/Units 10:01 Urine Color Yellow (Yellow) Urine Clarity Cloudy A (Clear) Urine pH 5.0 (5.0-8.0) pH Units Ur Specific Tangent 1.029 H (1.010-1.025) Urine Protein 30 H (Neg-Trace) mg/dL Urine Glucose (UA) >=1000 H (Normal) mg/dL - ABG Interpretation ABG results: 11/12/18 08:46 VBG pH 7.51 H VBG pCO2 29 L VBG pO2 196 H VBG HCO3 23 - Impressions ITS Impressions Head CT 11/12/18 07:03 IMPRESSION: No acute intracranial abnormality. D/ / 11/12/2018 07:36:12 Brice Min MD / joe Interpreting Provider: Brice Min MD Chest X-Ray 11/12/18 07:07 IMPRESSION: 1. No active pulmonary disease. D/ / Dillon Lin MD / Dillon Lin MD Interpreting Provider: Dillon Lin MD - Assessment and Plan (1) Stroke-like symptoms Status: Chronic Assessment and plan: The presents from home for his strokelike symptoms. The patient stated that she had a sudden onset of blurred vision in the left eye is associated with numbness, tingling and weakness of the left and lower upper extremity as well as slurred speech. She stated that her symptoms started last night. Stroke alert was called and [facility] team was consulted, they stated that patient pattern of symptoms is not consistent possible CVA or TIA , and in any circumstances patient is out of window for thrombolytics. PLAN: -CPP x 2 q 8 hr -EKG now and in AM, telemetry -ASA - Echo - Carotid Doppler - MRI (2) UTI (urinary tract infection) Status: Acute Assessment and plan: Discussions the ER I notice that the patient has low-grade fever, I requested urine analysis as well as chest x-ray to confirm source of infection. Urine analysis is suggestive of UTI, ER staff started ceftriaxone, blood culture and urine culture were obtained, the patient is allergic to penicillin was reported episodes of severe shortness of breath and swelling as well as rash, we will follow up on the preliminary culture report and adjust antibiotics accordingly. Qualifiers: Urinary tract infection type: acute cystitis Hematuria presence: without hematuria Qualified Code(s): N30.00 - Acute cystitis without hematuria (3) COPD (chronic obstructive pulmonary disease) Status: Chronic Assessment and plan: We will start the patient on DuoNeb when necessary Qualifiers: COPD type: unspecified COPD Qualified Code(s): J44.9 - Chronic obstructive pulmonary disease, unspecified (4) Anemia Status: Acute Assessment and plan: Likely secondary to chronic disease we will continue to monitor H&H Qualifiers: Anemia type: due to chronic kidney disease Chronic kidney disease stage: stage 3 (moderate) Qualified Code(s): N18.3 - Chronic kidney disease, stage 3 (moderate); D63.1 - Anemia in chronic kidney disease (5) Diabetes mellitus type 2 in obese Status: Acute Assessment and plan: The patient stated that she used to be on metformin however her primary care physician decided to take off it due to her kidney impairment, she is currently not in any diabetic medication and her blood glucose was above 400s during her evaluation in the ER. Will start the patient insulin sliding scale with coverage and adjust her diuretic medication regimen prior to discharge (6) Hyponatremia Status: Acute Assessment and plan: Most likely secondary to volume depletion will start patient on IV hydration with isotonic saline and order hyponatremia workup , if Na is not corrected with hydration (7) CKD (chronic kidney disease) Status: Acute Qualifiers: Chronic kidney disease stage: stage 3 (moderate) Qualified Code(s): N18.3 - Chronic kidney disease, stage 3 (moderate) (8) Elevated troponin Status: Acute Assessment and plan: The patient is chest pain-free, denies shortness of breath or diaphoresis, no reported ischemic ST-T wave changes, most like 2/2 demand isthmia in sitting of CKD - Time Spent With Patient Total time spent is greater than 50% in coordination of care (as documented) at patient's floor/unit and/or counseling patient:
[2018-11-12] MEDS ORDERED: cefTRIAXone 1,000 MG in 0.9 % Sodium Chloride Mini Bag 100 ML IVPB ONE (10:29)
[2018-11-12] MEDS ORDERED: Naloxone 0.4 MG/ML INJ IVP PRN (10:38)
[2018-11-12] MEDS ORDERED: Ondansetron 4 MG/2 ML VIAL IVP PRN (10:38)
[2018-11-12] MEDS: 0.9 % Sodium Chloride 1,000 ML IVC SCH (16:40)
[2018-11-12] MEDS ORDERED: *HR* Dextrose 50 % in Water (Syg) 50 ML SYRINGE IVP PRN (17:06)
[2018-11-12] MEDS ORDERED: Dextrose Gel 15 GM/37.5 ML TUBE PO PRN ×2 (17:06)
[2018-11-12] MEDS ORDERED: D5% in Water 1,000 ML IVC PRN (17:06)
[2018-11-12] MEDS: Insulin LISPRO 300 UNITS/3 ML VIAL SQ SCH ×2 (17:30→22:11)
[2018-11-12] MEDS ORDERED: Insulin LISPRO 300 UNITS/3 ML VIAL SQ ONE (17:46)
[2018-11-12] MEDS ORDERED: Magnesium Oxide 400 MG TABLET PO PRN (18:28)
[2018-11-12 18:41] LABS: Estimated Average Glucose 255 mg/dl
--- NOTE | 2018-11-12 20:21 | Electrocardiograph Report ---
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
[2018-11-12] MEDS ORDERED: traMADol 50 MG TABLET PO ONE (20:25)
[2018-11-12 20:48] LABS: Acinetobacter baumannii by PCR Not Detected (Not Detect); Candida albicans by PCR Not Detected (Not Detect); Candida glabrata by PCR Not Detected (Not Detect); Candida krusei by PCR Not Detected (Not Detect); Candida parapsilosis by PCR Not Detected (Not Detect); Candida tropicalis by PCR Not Detected (Not Detect); Enterobacter cloacae Cmplx PCR Not Detected (Not Detect); Enterobacteriaceae by PCR DETECTED (Not Detect); Enterococcus by PCR Not Detected (Not Detect); Escherichia coli by PCR DETECTED (Not Detect); Klebsiella oxytoca by PCR Not Detected (Not Detect); Klebsiella pneumoniae by PCR Not Detected (Not Detect); Proteus by PCR Not Detected (Not Detect); Pseudomonas aeruginosa by PCR Not Detected (Not Detect); Serratia marcescens by PCR Not Detected (Not Detect); Staphylococcus aureus by PCR Not Detected (Not Detect); Staphylococcus by PCR Not Detected (Not Detect); Streptococcus agalactiae(B)PCR Not Detected (Not Detect); Streptococcus by PCR Not Detected (Not Detect); Streptococcus pneumoniae PCR Not Detected (Not Detect); Streptococcus pyogenes (A) PCR Not Detected (Not Detect); blaKPC Carbapenem-Resist Gene Not Detected (Not Detect); mecA Methicillin-Resist Gene Not Detected (Not Detect); vanA/B Vancomycin-Resist Genes Not Detected (Not Detect)
[2018-11-12] MEDS ORDERED: cefTRIAXone 1,000 MG in Water for inj. (sterile) 20 ML 10 ML IVPB ONE (20:58)
[2018-11-12] MEDS ORDERED: Acetaminophen IV 500 MG/50 ML INFUS..BTL IVPB ONE (21:07)
[2018-11-12] MEDS: Famotidine 20 MG TABLET PO SCH (22:11)
[2018-11-13 03:13] LABS: Basophils % 0.1 %; Eosinophils % 0.1 %; Hematocrit 29.9 % (35.3-44.9); Hemoglobin 9.7 g/dL (11.5-15.4); Immature Granulocytes % 0.5 % (0-4); Lymphocytes # 0.7 K/mcL (0.6-4.6); Lymphocytes % 9.5 %; Mean Corpuscular HGB Conc 32.4 g/dL (31.6-35.5); Mean Corpuscular Hemoglobin 27.4 pg (28.0-33.3); Mean Corpuscular Volume 84.5 fL (83.0-100.0); Monocytes # 0.7 K/mcL (0.0-1.3); Monocytes % 8.8 %; Neutrophils # 6.3 K/mcL (1.6-8.9); Platelet Count 141 K/mcL (140-400); Red Blood Count 3.54 M/mcL (3.82-4.97); Red Cell Distribution Width 14.3 % (11.5-14.5); White Blood Count 7.8 K/mcL (4.3-11.1)
[2018-11-13 03:20] LABS: INR 1.3; Prothrombin Time 14.3 Seconds (9.4-12.1)
[2018-11-13 03:22] LABS: Activated Partial Thrombo Time 26.1 Seconds (26.0-36.0)
[2018-11-13 03:35] LABS: Chol/HDL Ratio 2.4 (0-4.9); Platelet Estimate Normal (Normal)
[2018-11-13 03:37] LABS: Albumin/Globulin Ratio 1.2 (1.1-2.2); Bilirubin,Total 0.4 mg/dL (0.3-1.0); Calcium 8.1 mg/dL (8.6-10.3); Chol/HDL Ratio 2.4 (0-4.9); Globulin 2.6 g/dL (2.4-3.5); Magnesium 1.3 mg/dL (1.6-2.6); Phosphorous 2.6 mg/dL (2.7-4.5); Potassium 3.1 mEq/L (3.5-5.1); Total Protein 5.6 g/dL (6.4-8.9)
--- NOTE | 2018-11-13 05:06 | Event Note ---
Date of Encounter: 11/12/18 Time of Encounter: 20:53 Alerted by patient's nurse WILMAN Pruitt that patient's blood cultures were positive for Escherichia coli. Patient had received one-time dose of Rocephin at 11:00 and ED. I ordered a second dose of 1000 mg Rocephin IVPB to be given now with subsequent dosing of 2000 mg twice a day IVPB starting tomorrow at 06:00. Patient febrile currently and not responding to by mouth Tylenol. One-time order for affirmative IVPB placed. Lactic acid ordered. Patient currently meeting sepsis criteria. Nurse instructed to monitor this patient very closely and alert me immediately of any adverse changes or signs of increasing infection/sepsis.
[2018-11-13] MEDS: 0.9 % Sodium Chloride 1,000 ML IVC SCH (05:46)
[2018-11-13] MEDS ORDERED: cefTRIAXone 2,000 MG in Water for inj. (sterile) 20 ML 20 ML IVPB SCH (06:00)
--- NOTE | 2018-11-13 06:52 | Event Note ---
Date of Encounter: 11/13/18 Time of Encounter: 06:00 Blood Cx is postive for E.Coli, source of infection most likely UTI, patient has severe allergy to penicillins, including swelling ,difficulty breathing. Cross-reactivity with penicillins is possibility. We will D/c ceftriaxone, and we will start Ciprofloxacin 400 mg IV BID and follow up Cx for further ABs regimen adjustment.
[2018-11-13] MEDS: Insulin LISPRO 300 UNITS/3 ML VIAL SQ SCH ×4 (08:22→20:41)
[2018-11-13] MEDS: Folic Acid 1 MG TABLET PO SCH (08:24)
[2018-11-13] MEDS: Aspirin Enteric Coated 81 MG Tablet PO SCH (08:24)
[2018-11-13] MEDS: Aspirin 81 MG TAB.CHEW PO SCH (08:24)
[2018-11-13] MEDS: Loratadine 10 MG TABLET PO SCH (08:24)
[2018-11-13] MEDS: Metoprolol XL (24 HR) Succ 50 MG TAB.ER.24H PO SCH (08:24)
[2018-11-13] MEDS ORDERED: Lisinopril-HCTZ 20-12.5mg TABLET PO SCH (09:00)
--- NOTE | 2018-11-13 11:41 | Internal Med Progress Note ---
Hospitalist Progress Note - Encounter Date of Encounter: 11/13/18 Time of Encounter: 11:39 - Subjective Interval History: Pt was seen and examined at bed side. She denied any CP / SOB. Pt still c.o Left foot numbness x 1 week. She is more alert, awake and O x 3 Looks weak and lethargic - Exam Vitals: Temp Pulse Resp BP Pulse Ox 98.5 F 101 19 136/83 93 11/13/18 11:02 11/13/18 11:02 11/13/18 11:02 11/13/18 11:02 11/13/18 11:02 Exam: Gen: Alert, awake, Oriented to time,place and person..Looks weak and lethargic Chest: Diminished breath sounds B/L, No wheezing, No crackles, No rales Heart: S1S2+ RRR No murmurs Abd: Soft, NT, BS +, No organomegaly Ext: No edema, pulses are palpable, No calf tenderness Neuro : No acute focal neuro deficits noticed other than Left foot numbness Skin: No rash. - Assessment and Plan (1) Bacteremia due to Escherichia coli Current Visit: Yes Status: Acute Assessment and Plan: Due to UTI Cont IV Cipro cont symptomatic and supportive care Patient does need to stay in the hospital more than 2 midnights due to her com plex medical problems UTI with bacteremia and severe metabolic abnormalities. So we will change her to full admission today. I did review my colleague Dr. Berger's H & P including HPI, PMH, PSH, FH, SH, and ROS no changes noticed (2) Stroke-like symptoms Current Visit: Yes Status: Acute Assessment and Plan: MRI of Head - ruled out CVA Carotid doppler showed non-stenotic plaque Bilaterally her generalized weakness most likely due to UTI with the bacteremia (3) UTI (urinary tract infection) Current Visit: No Status: Acute Assessment and Plan: UA - abnormal Urine cx- G-ve rods Blood cx 2/ - E. Coli due to UTI on Cipro IV (4) Electrolyte abnormality Current Visit: Yes Status: Acute Assessment and Plan: Due to dehydration and UTI cont replacing Mg, K+ and PO4 (5) Elevated troponin Current Visit: Yes Status: Acute Assessment and Plan: Due to demand ischemia with UTI and Bacteremia Trended down 2 D Echo form 10/12 - WNL No need to repeat Echo again (6) COPD (chronic obstructive pulmonary disease) Current Visit: No Status: Chronic Assessment and Plan: Not in exacerbation on duoneb (7) Diabetes mellitus type 2 in obese Current Visit: No Status: Acute Assessment and Plan: on ADA diet on ISS Hb A1C 10.5 BS fairly controlled due to Bacteremia started her on Levemir (8) Hyponatremia Current Visit: Yes Status: Acute Assessment and Plan: Due to dehydration Improving (9) Anemia Current Visit: No Status: Acute Assessment and Plan: Likely secondary to chronic disease we will continue to monitor H&H (10) CKD (chronic kidney disease) Current Visit: Yes Status: Acute - Time Spent with Patient Total time spent is greater than 50% in coordination of care (as documented) at patient's floor/unit and/or counseling patient: Internal Medicine: Result - Labs CBC & Chem 7: 11/13/18 02:30 11/13/18 02:30 Labs: Short CBC 11/13/18 Range/Units 02:30 WBC 7.8 (4.3-11.1) K/mcL Hgb 9.7 L (11.5-15.4) g/dL Hct 29.9 L (35.3-44.9) % Plt Count 141 (140-400) K/mcL Neutrophils # 6.3 (1.6-8.9) K/mcL BMP 11/13/18 02:30 Sodium 132 L Potassium 3.1 L Chloride 99 Carbon Dioxide 23 BUN 24 H Creatinine 1.40 H Glucose 205 H Calcium 8.1 L Cardiac Enzymes 11/12/18 11/12/18 11/13/18 Range/Units 16:32 21:24 09:10 Troponin I 0.03 0.04 H* 0.03 (< 0.04) ng/mL Liver Function 11/13/18 Range/Units 02:30 Total Bilirubin 0.4 (0.3-1.0) mg/dL AST 26 (13-39) Units/L ALT 24 (7-52) Units/L Alkaline Phosphatase 150 H (34-104) Units/L Albumin 3.0 L (3.5-5.7) g/dL - ABG Interpretation ABG results: PT/INR, D-dimer PT 14.3 Seconds (9.4-12.1) H 11/13/18 02:30 - Impressions Impressions Head CT 11/12/18 07:03 IMPRESSION: No acute intracranial abnormality. D/ / 11/12/2018 07:36:12 Brice Min MD / joe Interpreting Provider: Brice Min MD Brain MRI 11/12/18 17:51 IMPRESSION: 1. Motion limited evaluation. 2. No acute intracranial abnormality. 3. Mild chronic white matter microvascular ischemic changes. D/ / Berny Fried / Berny Fried Interpreting Provider: Berny Fried Consult Discharge Plan - Plan Referrals: Mabel Bundy DO [Primary Care Provider] - Prescriptions: Ciprofloxacin HCl [Cipro] 500 mg PO BID #8 tablet (3) UTI (urinary tract infection) Qualifiers: Urinary tract infection type: acute cystitis Hematuria presence: without hematuria Qualified Code(s): N30.00 - Acute cystitis without hematuria (6) COPD (chronic obstructive pulmonary disease) Qualifiers: COPD type: unspecified COPD Qualified Code(s): J44.9 - Chronic obstructive pu lmonary disease, unspecified (9) Anemia Qualifiers: Anemia type: due to chronic kidney disease Chronic kidney disease stage: stage 3 (moderate) Qualified Code(s): N18.3 - Chronic kidney disease, stage 3 (moderate); D63.1 - Anemia in chronic kidney disease; D63.1 - Anemia in chronic kidney disease
[2018-11-13] MEDS: *HR* Heparin 5,000 UNIT/ML VIAL SQ SCH (17:51)
[2018-11-13] MEDS ORDERED: traMADol 50 MG TABLET PO ONE (19:32)
[2018-11-13] MEDS: Famotidine 20 MG TABLET PO SCH (20:41)
[2018-11-14] MEDS: *HR* Heparin 5,000 UNIT/ML VIAL SQ SCH (05:04)
[2018-11-14 05:19] LABS: Hematocrit 29.6 % (35.3-44.9); Hemoglobin 9.5 g/dL (11.5-15.4); Mean Corpuscular HGB Conc 32.1 g/dL (31.6-35.5); Mean Corpuscular Hemoglobin 28.2 pg (28.0-33.3); Mean Corpuscular Volume 87.8 fL (83.0-100.0); Mean Platelet Volume 10.6 fL (9.4-12.4); Platelet Count 159 K/mcL (140-400); Red Blood Count 3.37 M/mcL (3.82-4.97); Red Cell Distribution Width 14.5 % (11.5-14.5); White Blood Count 5.2 K/mcL (4.3-11.1)
[2018-11-14 05:40] LABS: Calcium 8.5 mg/dL (8.6-10.3); Magnesium 1.7 mg/dL (1.6-2.6)
[2018-11-14 07:27] VITALS: BP 160/91
[2018-11-14] MEDS: Loratadine 10 MG TABLET PO SCH (08:17)
[2018-11-14] MEDS: Insulin LISPRO 300 UNITS/3 ML VIAL SQ SCH ×2 (08:17→12:09)
[2018-11-14] MEDS: Aspirin 81 MG TAB.CHEW PO SCH (08:17)
[2018-11-14] MEDS: Folic Acid 1 MG TABLET PO SCH (08:17)
[2018-11-14] MEDS: Aspirin Enteric Coated 81 MG Tablet PO SCH (08:17)
[2018-11-14] MEDS: Metoprolol XL (24 HR) Succ 50 MG TAB.ER.24H PO SCH (08:17)
--- NOTE | 2018-11-14 09:33 | Discharge Summary ---
- NOTES TO OUTPATIENT PROVIDER Notes to Outpatient Provider: Follow up with PCP in one week. Orders not resulted at time of discharge: Pending orders 11/12/18 07:47 Culture,Blood [BC] Stat 11/12/18 10:01 Culture,Urine [RM] Stat Date of Encounter: 11/14/18 Time of Encounter: 09:22 - Discharge Diagnosis (1) Bacteremia due to Escherichia coli Priority: Primary Status: Acute (2) UTI (urinary tract infection) Priority: Primary Status: Acute Qualifiers: Urinary tract infection type: acute cystitis Hematuria presence: without hematuria Qualified Code(s): N30.00 - Acute cystitis without hematuria (3) Stroke-like symptoms Priority: Primary Status: Chronic (4) Electrolyte abnormality Priority: Primary Status: Acute (5) Elevated troponin Priority: Secondary Status: Acute (6) COPD (chronic obstructive pulmonary disease) Priority: Secondary Status: Chronic Qualifiers: COPD type: unspecified COPD Qualified Code(s): J44.9 - Chronic obstructive pulmonary disease, unspecified (7) Diabetes mellitus type 2 in obese Priority: Secondary Status: Acute (8) Hyponatremia Priority: Secondary Status: Acute (9) Anemia Priority: Secondary Status: Acute Qualifiers: Anemia type: due to chronic kidney disease Chronic kidney disease stage: stage 3 (moderate) Qualified Code(s): N18.3 - Chronic kidney disease, stage 3 (moderate); D63.1 - Anemia in chronic kidney disease (10) CKD (chronic kidney disease) Priority: Secondary Status: Acute Qualifiers: Chronic kidney disease stage: stage 3 (moderate) Qualified Code(s): N18.3 - Chronic kidney disease, stage 3 (moderate) Hospital course: Ms. Rodrigues is a 63 year old female with known PMH of poorly controlled diabetes, hypertension, and hyperlipidemia, chronic kidney disease stage 3 presented to ER from home with Generalized weakness, lethargy and Left foot numbness. The patient stated that she had a sudden onset of blurred vision in the left eye is associated with numbness, tingling and weakness of the left and lower upper extremity as well as slurred speech. Stroke alert was called and [facility] team was consulted, they stated that patient pattern of symptoms is not consistent possible CVA or TIA , and in any circumstances patient is out of window for thrombolytics. The patient is complaining of increased urgency and increased frequency of urination. Her CT scan of the head was no significant abnormalities. She was admitted in the hospital and placed her on tele. Her Uri ne cx grew G-Ve rods ( E. Coli ) and had bacteremia with G-ve rods. Her Brain MRI came back as negative for Ischemia / Infarction. She did have severe electrolyte abnormalities, which improved with hydration and replacing electrolytes. She was started on IV Ciprofloxacin. Today her symptoms improved. So will d/c her home in stable condition today. - Time Spent with Patient Total time spent providing and/or coordinating discharge services: - Discharge Medications Prescriptions: New Ciprofloxacin HCl [Cipro] 500 mg PO BID #8 tablet Continued Metoprolol XL (24 HR) Succ [Toprol Xl] 50 mg PO DAILY Folic Acid 1 mg PO DAILY #30 tablet Lisinopril-HCTZ 20-12.5 [Prinzide 20-12.5] 12.5 mg PO DAILY Latanoprost [Xalatan] 2.5 ml OP DAILY #0 Oxybutynin [Ditropan] 10 mg PO DAILY DULoxetine [Cymbalta] 30 mg PO DAILY Brimonidine 0.2% [Alphagan] 1 drop BOTH EYES TID Cetirizine HCl [Allergy Relief] 10 mg PO DAILY Allopurinol [Zyloprim 300 MG] 300 mg PO DAILY Omeprazole [PriLOSEC] 40 mg PO DAILY Magnesium Oxide [Mag-Oxide Magnesium] 400 mg PO HS PRN PRN Reason: Leg Cramps Montelukast [Singulair] 10 mg PO DAILY Ranitidine HCl [Acid Ticket Counter] 150 mg PO HS Aspirin Enteric Coated [Aspirin EC] 81 mg PO DAILY No Action Amlodipine Besylate 10 mg PO DAILY Cholestyramine 4 gm PO BID Diphenoxylate/Atropine [Lomotil 2.5 mg/0.025 mg] 2 each PO QID PRN PRN Reason: Diarrhea Fluticasone Propionate Nasal [Flonase] 50 mcg NS DAILY Home Medications: Metoprolol XL (24 HR) Succ [Toprol Xl] 50 mg PO DAILY 08/21/16 [History] Aspirin Enteric Coated [Aspirin EC] 81 mg PO DAILY 01/11/17 [History] Folic Acid 1 mg PO DAILY #30 tablet 10/14/18 [Rx] Allopurinol [Zyloprim 300 MG] 300 mg PO DAILY 11/12/18 [History] Brimonidine 0.2% [Alphagan] 1 drop BOTH EYES TID 11/12/18 [History] Cetirizine HCl [Allergy Relief] 10 mg PO DAILY 11/12/18 [History] DULoxetine [Cymbalta] 30 mg PO DAILY 11/12/18 [History] Latanoprost [Xalatan] 2.5 ml OP DAILY #0 11/12/18 [History] Lisinopril-HCTZ 20-12.5 [Prinzide 20-12.5] 12.5 mg PO DAILY 11/12/18 [History] Magnesium Oxide [Mag-Oxide Magnesium] 400 mg PO HS PRN 11/12/18 [History] Montelukast [Singulair] 10 mg PO DAILY 11/12/18 [History] Omeprazole [PriLOSEC] 40 mg PO DAILY 11/12/18 [History] Oxybutynin [Ditropan] 10 mg PO DAILY 11/12/18 [History] Ranitidine HCl [Acid Ticket Counter] 150 mg PO HS 11/12/18 [History] Amlodipine Besylate 10 mg PO DAILY 11/13/18 [History] Cholestyramine 4 gm PO BID 11/13/18 [History] Ciprofloxacin HCl [Cipro] 500 mg PO BID #8 tablet 11/13/18 [Rx] Diphenoxylate/Atropine [Lomotil 2.5 mg/0.025 mg] 2 each PO QID PRN 11/13/18 [History] Fluticasone Propionate Nasal [Flonase] 50 mcg NS DAILY 11/13/18 [History] Allergies/Adverse Reactions: Allergy/AdvReac Type Severity Reaction Status Date / Time acetaminophen Allergy Hives Verified 11/13/18 13:03 [From Darvocet-N 100] ibuprofen Allergy See Verified 11/13/18 13:03 Comments Penicillins Allergy Hives Verified 11/13/18 13:03 propoxyphene Allergy Hives Verified 11/13/18 13:03 [From Darvocet-N 100] Date of admission: 11/13/18 11:49 Primary care physician: Mabel Bundy DO Consults: 11/13/18 09:58 Consult to Occupational Therapy [CONS] Routine Comment: Evaluate, develop and implement POC Reason for Consult: weakness Does patient have active BEDREST order?: No Is patient medically & hemodynamically stable?: Yes Patient assessed for mobility or mobilized this visit?: Yes Consult to Physical Therapy [CONS] Routine Comment: Evaluate, develop and implement POC Reason for Consult: weakness Does patient have active BEDREST order?: No Is patient medically & hemodynamically stable?: Yes Patient assessed for mobility or mobilized this visit?: Yes - Constitutional Vitals: Temp Pulse Resp BP Pulse Ox 98.2 F 91 17 160/91 97 11/14/18 07:15 11/14/18 07:15 11/14/18 07:15 11/14/18 07:15 11/14/18 07:15 General appearance: Present: A&O X 3 Exam: Gen: Alert, awake, Oriented to time,place and person..Looks weak and lethargic Chest: Diminished breath sounds B/L, No wheezing, No crackles, No rales Heart: S1S2+ RRR No murmurs Abd: Soft, NT, BS +, No organomegaly Ext: No edema, pulses are palpable, No calf tenderness Neuro : No acute focal neuro deficits noticed Skin: No rash. - Patient Status Disposition: Home, Self-Care Condition: Good Overall status at discharge: patient is back to baseline - Discharge Instructions Follow Up With: Mabel Bundy DO [Primary Care Provider] - 11/20/18 3:20 pm (Appt will be with Dr. Horn due to physician not having openings. ) - Diet and Activity Activity: increase activity as tolerated Diet: low salt diet
--- NOTE | 2018-11-14 11:00 | Physician Discharge Referral ---
Home Health/Hosp Referral Info Transfer to: Home Health Provider in Charge Post Discharge: PCP - Diagnosis (1) Bacteremia due to Escherichia coli Status: Acute (2) UTI (urinary tract infection) Status: Acute (3) Stroke-like symptoms Status: Chronic (4) Electrolyte abnormality Status: Acute (5) Elevated troponin Status: Acute (6) COPD (chronic obstructive pulmonary disease) Status: Chronic (7) Diabetes mellitus type 2 in obese Status: Acute (8) Hyponatremia Status: Acute (9) Anemia Status: Acute (10) CKD (chronic kidney disease) Status: Acute - Respiratory Orders Smoking Cessation: Smoking cessation has been advised. For more information, call the [place] Tobacco Quit Line at 8-959-DEWQNOW. - Services Needed Following services are medically necessary services: Nursing, Physical Therapy, Occupational Therapy - Transfer Medications Home Medications: Metoprolol XL (24 HR) Succ [Toprol Xl] 50 mg PO DAILY 08/21/16 [History] Aspirin Enteric Coated [Aspirin EC] 81 mg PO DAILY 01/11/17 [History] Folic Acid 1 mg PO DAILY #30 tablet 10/14/18 [Rx] Allopurinol [Zyloprim 300 MG] 300 mg PO DAILY 11/12/18 [History] Brimonidine 0.2% [Alphagan] 1 drop BOTH EYES TID 11/12/18 [History] Cetirizine HCl [Allergy Relief] 10 mg PO DAILY 11/12/18 [History] DULoxetine [Cymbalta] 30 mg PO DAILY 11/12/18 [History] Latanoprost [Xalatan] 2.5 ml OP DAILY #0 11/12/18 [History] Lisinopril-HCTZ 20-12.5 [Prinzide 20-12.5] 12.5 mg PO DAILY 11/12/18 [History] Magnesium Oxide [Mag-Oxide Magnesium] 400 mg PO HS PRN 11/12/18 [History] Montelukast [Singulair] 10 mg PO DAILY 11/12/18 [History] Omeprazole [PriLOSEC] 40 mg PO DAILY 11/12/18 [History] Oxybutynin [Ditropan] 10 mg PO DAILY 11/12/18 [History] Ranitidine HCl [Acid Rehabilitation Team Lead] 150 mg PO HS 11/12/18 [History] Amlodipine Besylate 10 mg PO DAILY 11/13/18 [History] Cholestyramine 4 gm PO BID 11/13/18 [History] Ciprofloxacin HCl [Cipro] 500 mg PO BID #8 tablet 11/13/18 [Rx] Diphenoxylate/Atropine [Lomotil 2.5 mg/0.025 mg] 2 each PO QID PRN 11/13/18 [History] Fluticasone Propionate Nasal [Flonase] 50 mcg NS DAILY 11/13/18 [History] Allergies/Adverse Reactions: Allergy/AdvReac Type Severity Reaction Status Date / Time acetaminophen Allergy Hives Verified 11/13/18 13:03 [From DarGreengate Powert-N 100] ibuprofen Allergy See Verified 11/13/18 13:03 Comments Penicillins Allergy Hives Verified 11/13/18 13:03 propoxyphene Allergy Hives Verified 11/13/18 13:03 [From DarGreengate Powert-N 100] Certification: Further, I certify that my clinical findings support that this patient is homebound (i.e. absences from home require considerable and taxing effort and are for medical reasons or hoahaoism services or infrequently or short duration when for other reasons) because: Homebound Reason: Patient requires assistance of a person or device to safely leave home Attestation: My signature below is to certify that this patient is under my care and that I, or nurse practitioner, or a physician's producer assistant working with me, has a [id number] encounter with this patient.
== END 2018-11-14 15:49 | disposition home or self-care (01) | DRG 463 ==
LOC: 3BNU 06:51 → EMEROOARM 06:51 → SUATTDRO 13:51 → 3BNU 14:56
PROVIDERS: ADMIT Internal Medicine Nephrology; ATTEND Family Medicine

== ENCOUNTER 2019-05-04 07:00 | Observation (INO) ==
[2019-05-04] MEDS ORDERED: 0.9 % Sodium Chloride 1,000 ML IVC ONE ×2 (07:10→09:42)
[2019-05-04] MEDS ORDERED: Ondansetron 4 MG/2 ML VIAL IVP ONE (07:11)
[2019-05-04 07:48] LABS: Basophils % 0.2 %; Eosinophils % 0.1 %; Hematocrit 31.8 % (35.3-44.9); Hemoglobin 10.4 g/dL (11.5-15.4); Immature Granulocytes % 0.9 % (0-4); Lymphocytes # 0.8 K/mcL (0.6-4.6); Lymphocytes % 6.6 %; Mean Corpuscular HGB Conc 32.7 g/dL (31.6-35.5); Mean Corpuscular Hemoglobin 27.6 pg (28.0-33.3); Mean Corpuscular Volume 84.4 fL (83.0-100.0); Mean Platelet Volume 9.5 fL (9.4-12.4); Monocytes # 0.7 K/mcL (0.0-1.3); Monocytes % 6.1 %; Neutrophils # 9.8 K/mcL (1.6-8.9); Platelet Count 221 K/mcL (140-400); Red Blood Count 3.77 M/mcL (3.82-4.97); Red Cell Distribution Width 14.4 % (11.5-14.5); Segmented Neutrophils % 86.1 %; White Blood Count 11.4 K/mcL (4.3-11.1)
[2019-05-04 08:10] LABS: Albumin 3.3 g/dL (3.5-5.7); Albumin/Globulin Ratio 1.1 (1.1-2.2); Bilirubin,Direct 0.2 mg/dL (0.0-0.2); Bilirubin,Indirect 0.4 mg/dL (0.0-1.0); Bilirubin,Total 0.6 mg/dL (0.3-1.0); Calcium 8.5 mg/dL (8.6-10.3); Globulin 3.1 g/dL (2.4-3.5); Magnesium 1.2 mg/dL (1.6-2.6); Phosphorous 2.7 mg/dL (2.7-4.5); Potassium 3.8 mEq/L (3.5-5.1); Total Protein 6.4 g/dL (6.4-8.9)
[2019-05-04 08:14] LABS: Troponin I 0.04 ng/mL (< 0.04)
[2019-05-04] MEDS ORDERED: Aspirin 81 MG TAB.CHEW PO ONE (08:30)
[2019-05-04 09:19] LABS: Bilirubin,Urine Small (Negative); Blood,Urine Small (Negative); Clarity,Urine Cloudy (Clear); Color,Urine Yellow (Yellow); Glucose,Urine (UA) 100 mg/dL (Normal); Ketones,Urine Trace mg/dL (Negative); Leukocyte Esterase,Urine Large (Negative); Nitrite,Urine Positive (Negative); Protein,Urine 30 mg/dL (Neg-Trace); Specific Gravity,Urine 1.023 (1.010-1.025); Urobilinogen,Urine Normal (Normal)
[2019-05-04 09:22] LABS: Bacteria,Urine Many per hpf (None-Few); RBC,Urine 0-3 per hpf (0-3); Squamous Epithelial Cell,Urine Many per lpf (None-Few); WBC,Urine TNTC per hpf (0-3)
[2019-05-04] MEDS ORDERED: cefTRIAXone 1,000 MG in Water for inj. (sterile) 10 ML IVP ONE (09:32)
[2019-05-04 09:43] LABS: Granular Casts,Urine Few per lpf (None Seen); Hyaline Casts,Urine Few per lpf (None-Few)
[2019-05-04] MEDS ORDERED: Naloxone 0.4 MG/ML INJ IVP PRN (09:59)
[2019-05-04] MEDS ORDERED: Ondansetron 4 MG/2 ML VIAL IVP PRN (09:59)
[2019-05-04] MEDS ORDERED: Magnesium Oxide 400 MG TABLET PO PRN (10:00)
[2019-05-04] MEDS ORDERED: Diphenoxylate/Atropine 1 TAB TABLET PO PRN (10:00)
[2019-05-04] MEDS ORDERED: D5% in Water 1,000 ML IVC PRN (10:04)
[2019-05-04] MEDS ORDERED: Dextrose Gel 15 GM/37.5 ML TUBE PO PRN ×2 (10:04)
[2019-05-04] MEDS ORDERED: *HR* Dextrose 50 % in Water (Syg) 50 ML SYRINGE IVP PRN (10:04)
[2019-05-04] MEDS: Ringers Solution, Lactated 1,000 ML IVC SCH (12:48)
[2019-05-04] MEDS: Insulin LISPRO 300 UNITS/3 ML VIAL SQ SCH ×2 (12:49→16:30)
[2019-05-04] MEDS: *HR* Heparin 5,000 UNIT/ML VIAL SQ SCH ×2 (12:49→21:35)
[2019-05-04] MEDS: Cholestyramine 4 GM POWD.PACK PO SCH (16:29)
[2019-05-04] MEDS ORDERED: NON-FORMULARY MEDICATION 1 EACH EACH (Ranitidine Hcl [Acid Reducer] 150 MG) PO SCH (21:00)
[2019-05-04] MEDS ORDERED: Insulin LISPRO 300 UNITS/3 ML VIAL SQ SCH (21:00)
[2019-05-04] MEDS ORDERED: Cholestyramine 4 GM POWD.PACK PO SCH (21:00)
[2019-05-04] MEDS ORDERED: Insulin DETEMIR 100 UNIT/ML X5UNITS SQ SCH (21:00)
[2019-05-05] MEDS: Ringers Solution, Lactated 1,000 ML IVC SCH (02:13)
[2019-05-05] MEDS: *HR* Heparin 5,000 UNIT/ML VIAL SQ SCH (05:13)
[2019-05-05 05:39] LABS: mecA Methicillin-Resist Gene DETECTED (Not Detect)
[2019-05-05 05:40] LABS: Acinetobacter baumannii by PCR Not Detected (Not Detect); Candida albicans by PCR Not Detected (Not Detect); Candida glabrata by PCR Not Detected (Not Detect); Candida krusei by PCR Not Detected (Not Detect); Candida parapsilosis by PCR Not Detected (Not Detect); Candida tropicalis by PCR Not Detected (Not Detect); Enterobacter cloacae Cmplx PCR Not Detected (Not Detect); Enterobacteriaceae by PCR Not Detected (Not Detect); Enterococcus by PCR Not Detected (Not Detect); Escherichia coli by PCR Not Detected (Not Detect); Klebsiella oxytoca by PCR Not Detected (Not Detect); Klebsiella pneumoniae by PCR Not Detected (Not Detect); Proteus by PCR Not Detected (Not Detect); Pseudomonas aeruginosa by PCR Not Detected (Not Detect); Serratia marcescens by PCR Not Detected (Not Detect); Staphylococcus aureus by PCR Not Detected (Not Detect); Staphylococcus by PCR DETECTED (Not Detect); Streptococcus agalactiae(B)PCR Not Detected (Not Detect); Streptococcus by PCR Not Detected (Not Detect); Streptococcus pneumoniae PCR Not Detected (Not Detect); Streptococcus pyogenes (A) PCR Not Detected (Not Detect)
[2019-05-05] MEDS: Cholestyramine 4 GM POWD.PACK PO SCH (07:14)
[2019-05-05] MEDS: Insulin LISPRO 300 UNITS/3 ML VIAL SQ SCH ×2 (07:20→11:09)
[2019-05-05 08:27] LABS: Basophils % 0.3 %; Eosinophils # 0.1 K/mcL (0.0-0.6); Eosinophils % 1.3 %; Hematocrit 30.9 % (35.3-44.9); Hemoglobin 9.9 g/dL (11.5-15.4); Immature Granulocytes % 0.8 % (0-4); Lymphocytes # 1.2 K/mcL (0.6-4.6); Lymphocytes % 12.8 %; Mean Corpuscular Hemoglobin 27.3 pg (28.0-33.3); Mean Corpuscular Volume 85.1 fL (83.0-100.0); Mean Platelet Volume 9.5 fL (9.4-12.4); Monocytes # 0.8 K/mcL (0.0-1.3); Monocytes % 8.8 %; Neutrophils # 7.2 K/mcL (1.6-8.9); Platelet Count 207 K/mcL (140-400); Red Blood Count 3.63 M/mcL (3.82-4.97); Red Cell Distribution Width 14.2 % (11.5-14.5); White Blood Count 9.4 K/mcL (4.3-11.1)
[2019-05-05 08:46] LABS: Calcium 8.1 mg/dL (8.6-10.3); Magnesium 1.8 mg/dL (1.6-2.6); Potassium 4.5 mEq/L (3.5-5.1)
[2019-05-05] MEDS ORDERED: NON-FORMULARY MEDICATION 1 EACH EACH (Cetirizine Hcl [Allergy Relief] 10 MG) PO SCH (09:00)
[2019-05-05] MEDS ORDERED: Aspirin Enteric Coated 81 MG Tablet PO SCH (09:00)
[2019-05-05] MEDS ORDERED: cefTRIAXone 1,000 MG in Water for inj. (sterile) 10 ML IVP SCH (09:00)
[2019-05-05] MEDS ORDERED: Fluticasone Propionate Nasal 50 MCG/SPRAY BOTTLE NS PRN (09:00)
[2019-05-05] MEDS ORDERED: Loratadine 10 MG TABLET PO SCH (09:00)
[2019-05-05] MEDS ORDERED: cefTRIAXone 1,000 MG in 0.9 % Sodium Chloride Mini Bag 100 ML IVPB SCH (09:00)
[2019-05-05 11:06] VITALS: BP 109/69
[2019-05-05] MEDS ORDERED: Latanoprost 2.5 ML BOTTLE BOTH EYES SCH (21:00)
== END 2019-05-05 15:53 | disposition left against medical advice (07) ==
LOC: 2ANU 07:00 → EMEROOARM 07:00 → SUATTDRO 09:45 → 2ANU 11:07
PROVIDERS: ADMIT Internal Medicine; ATTEND Student in an Organized Health Care Education/Training Program

== ENCOUNTER 2020-02-12 13:24 | Observation (INO) ==
[2020-02-12] MEDS ORDERED: Aspirin 81 MG TAB.CHEW PO ONE (13:29)
[2020-02-12 14:16] LABS: Basophils % 0.3 %; Eosinophils # 0.2 K/mcL (0.0-0.6); Eosinophils % 1.6 %; Hematocrit 33.6 % (35.3-44.9); Hemoglobin 10.1 g/dL (11.5-15.4); Immature Granulocytes % 0.5 % (0-4); Lymphocytes # 1.5 K/mcL (0.6-4.6); Lymphocytes % 11.7 %; Mean Corpuscular HGB Conc 30.1 g/dL (31.6-35.5); Mean Corpuscular Hemoglobin 26.9 pg (28.0-33.3); Mean Corpuscular Volume 89.6 fL (83.0-100.0); Mean Platelet Volume 9.5 fL (9.4-12.4); Monocytes # 0.6 K/mcL (0.0-1.3); Monocytes % 4.9 %; Neutrophils # 10.3 K/mcL (1.6-8.9); Platelet Count 254 K/mcL (140-400); Red Blood Count 3.75 M/mcL (3.82-4.97); Red Cell Distribution Width 15.2 % (11.5-14.5); White Blood Count 12.7 K/mcL (4.3-11.1)
[2020-02-12 14:23] LABS: INR 1.1; Prothrombin Time 12.2 Seconds (9.4-12.1)
[2020-02-12 14:25] LABS: Activated Partial Thrombo Time 33.3 Seconds (26.0-36.0)
[2020-02-12] MEDS ORDERED: Isovue-370 500 ML BOTTLE IVP ONE (14:29)
[2020-02-12 14:34] LABS: Alanine Aminotransferase 17 Units/L (7-52); Albumin 3.6 g/dL (3.5-5.7); Albumin/Globulin Ratio 1.2 (1.1-2.2); Alkaline Phosphatase 138 Units/L (34-104); Aspartate Amino Transferase 15 Units/L (13-39); BUN/Creatinine Ratio 22 (6-26); Bilirubin,Indirect 0.4 mg/dL (0.0-1.0); Bilirubin,Total 0.4 mg/dL (0.3-1.0); Blood Urea Nitrogen 32 mg/dL (8-23); Carbon Dioxide 28 mEq/L (23-29); Chloride 104 mEq/L (98-107); Globulin 2.9 g/dL (2.4-3.5); Glucose 83 mg/dL (70-105); Lipase 22 Units/L (11-82); Osmolality,Calculated 294 (280-300); Potassium 4.8 mEq/L (3.5-5.1); Sodium 139 mEq/L (136-145); Total Protein 6.5 g/dL (6.4-8.9); eGFR For African Americans 44 (> 60); eGFR For Non-African Americans 36 (> 60)
[2020-02-12 14:35] LABS: Troponin I < 0.03 ng/mL (< 0.04)
[2020-02-12 14:51] LABS: Bilirubin,Urine Negative (Negative); Blood,Urine Negative (Negative); Clarity,Urine Clear (Clear); Color,Urine Light-Yellow (Yellow); Glucose,Urine (UA) Normal (Normal); Ketones,Urine Negative (Negative); Leukocyte Esterase,Urine Negative (Negative); Nitrite,Urine Negative (Negative); Protein,Urine Negative (Neg-Trace); Urobilinogen,Urine Normal (Normal)
[2020-02-12] MEDS ORDERED: Naloxone 0.4 MG/ML INJ IVP PRN (19:09)
[2020-02-12] MEDS ORDERED: Perflutren Lipid Microsphere 1.3 ML in 0.9 % Sodium Chloride 8.7 ML IVP PRN (19:19)
[2020-02-12] MEDS ORDERED: Nitroglycerin 0.4 MG TAB.SUBL SL PRN (19:27)
[2020-02-12] MEDS ORDERED: Ipratropium/Albuterol Neb 3 ML IH PRN (19:31)
[2020-02-13 06:46] LABS: Hematocrit 31.1 % (35.3-44.9); Hemoglobin 9.4 g/dL (11.5-15.4); Mean Corpuscular HGB Conc 30.2 g/dL (31.6-35.5); Mean Corpuscular Hemoglobin 26.7 pg (28.0-33.3); Mean Corpuscular Volume 88.4 fL (83.0-100.0); Mean Platelet Volume 9.5 fL (9.4-12.4); Platelet Count 221 K/mcL (140-400); Red Blood Count 3.52 M/mcL (3.82-4.97); Red Cell Distribution Width 15.2 % (11.5-14.5)
[2020-02-13 07:07] LABS: % Iron Saturation 11 % (15-50); Iron 26 mcg/dL (50-170); Transferrin 174 mg/dL (203-362)
[2020-02-13 07:09] LABS: Albumin 3.3 g/dL (3.5-5.7); Albumin/Globulin Ratio 1.3 (1.1-2.2); Bilirubin,Total 0.5 mg/dL (0.3-1.0); Calcium 8.8 mg/dL (8.6-10.3); Globulin 2.6 g/dL (2.4-3.5); Magnesium 1.8 mg/dL (1.6-2.6); Phosphorous 3.8 mg/dL (2.7-4.5); Potassium 4.3 mEq/L (3.5-5.1); Total Protein 5.9 g/dL (6.4-8.9)
[2020-02-13 07:29] LABS: Folate 7.5 ng/mL (3.0-16.0)
[2020-02-13] MEDS ORDERED: Subcutaneous Insulin Pump [T:Slim] SQ SCH (07:45)
[2020-02-13] MEDS ORDERED: Fluticasone Propionate Nasal 50 MCG/SPRAY BOTTLE NS PRN (07:45)
[2020-02-13] MEDS ORDERED: Iron Sucrose Complex 400 MG in 0.9 % Sodium Chloride 250 ML IVPB ONE (07:49)
[2020-02-13 08:28] LABS: Estimated Average Glucose 166 mg/dl
[2020-02-13] MEDS: Insulin LISPRO 300 UNITS/3 ML VIAL SQ SCH ×2 (08:33→11:24)
[2020-02-13 09:00] LABS: Troponin I < 0.03 ng/mL (< 0.04)
[2020-02-13] MEDS ORDERED: Folic Acid 1 MG TABLET PO SCH (09:00)
[2020-02-13] MEDS ORDERED: Aspirin Enteric Coated 81 MG Tablet PO SCH (09:00)
[2020-02-13] MEDS ORDERED: Metoprolol XL (24 HR) Succ 50 MG TAB.ER.24H PO SCH (09:00)
[2020-02-13 14:21] VITALS: BP 131/62
[2020-02-13] MEDS ORDERED: Latanoprost 2.5 ML BOTTLE BOTH EYES SCH (18:00)
[2020-02-13] MEDS ORDERED: Magnesium Oxide 400 MG TABLET PO SCH (21:00)
[2020-02-14] MEDS ORDERED: Ergocalciferol (VIT D2) 50,000 UNIT (1.25MG) CAP PO SCH (07:45)
== END 2020-02-13 15:37 | disposition left against medical advice (07) ==
LOC: SUATTDRO → 3ANU 13:24 → EMEROOARM 13:24 → SUATTDRO 16:51 → 3ANU 17:49
PROVIDERS: ADMIT Internal Medicine; ATTEND Internal Medicine

== ENCOUNTER 2020-04-23 09:45 | Inpatient (IN) ==
[2020-04-23 10:14] LABS: Basophils % 0.1 %; Hematocrit 37.4 % (35.3-44.9); Hemoglobin 11.6 g/dL (11.5-15.4); Immature Granulocytes % 0.9 % (0-4); Lymphocytes # 0.5 K/mcL (0.6-4.6); Lymphocytes % 5.9 %; Mean Corpuscular Hemoglobin 27.7 pg (28.0-33.3); Mean Corpuscular Volume 89.3 fL (83.0-100.0); Mean Platelet Volume 9.5 fL (9.4-12.4); Monocytes # 0.4 K/mcL (0.0-1.3); Monocytes % 5.1 %; Neutrophils # 7.7 K/mcL (1.6-8.9); Platelet Count 196 K/mcL (140-400); Red Blood Count 4.19 M/mcL (3.82-4.97); Red Cell Distribution Width 15.2 % (11.5-14.5); White Blood Count 8.7 K/mcL (4.3-11.1)
[2020-04-23 10:16] LABS: INR 1.2; Prothrombin Time 13.6 Seconds (9.4-12.1)
[2020-04-23] MEDS ORDERED: Ipratropium/Albuterol Neb 3 ML IH ONE (10:17)
[2020-04-23 10:19] LABS: Activated Partial Thrombo Time 20.3 Seconds (26.0-36.0)
[2020-04-23 10:43] LABS: Bacteria,Urine Moderate per hpf (None-Few); Bilirubin,Urine Negative (Negative); Blood,Urine Negative (Negative); Clarity,Urine Clear (Clear); Color,Urine Yellow (Yellow); Glucose,Urine (UA) Normal (Normal); Ketones,Urine Negative (Negative); Leukocyte Esterase,Urine Negative (Negative); Mucus,Urine Few per lpf (None-Few); Nitrite,Urine Negative (Negative); PH,Urine 5.5 pH Units (5.0-8.0); Protein,Urine 50 mg/dL (Neg-Trace); RBC,Urine 0-3 per hpf (0-3); Specific Gravity,Urine 1.028 (1.010-1.025); Squamous Epithelial Cell,Urine Few per hpf (None-Few); Urobilinogen,Urine Normal (Normal); WBC,Urine 0-3 per hpf (0-3)
[2020-04-23] MEDS ORDERED: Dexamethasone Sodium Phos/PF 10 MG/ML VIAL IVP ONE (10:51)
[2020-04-23] MEDS ORDERED: cefTRIAXone 1,000 MG in Water for inj. (sterile) 10 ML IVP ONE (10:51)
[2020-04-23] MEDS ORDERED: Azithromycin 500 MG in 0.9 % Sodium Chloride 250 ML IVPB ONE (10:51)
[2020-04-23 11:44] LABS: Alanine Aminotransferase 26 Units/L (7-52); Albumin 3.2 g/dL (3.5-5.7); Albumin/Globulin Ratio 1.1 (1.1-2.2); Alkaline Phosphatase 100 Units/L (34-104); Aspartate Amino Transferase 21 Units/L (13-39); BUN/Creatinine Ratio 23 (6-26); Bilirubin,Direct 0.1 mg/dL (0.0-0.2); Bilirubin,Indirect 0.4 mg/dL (0.0-1.0); Bilirubin,Total 0.5 mg/dL (0.3-1.0); Blood Urea Nitrogen 28 mg/dL (8-23); Calcium 8.9 mg/dL (8.6-10.3); Carbon Dioxide 26 mEq/L (23-29); Chloride 98 mEq/L (98-107); Globulin 2.9 g/dL (2.4-3.5); Glucose 206 mg/dL (70-105); Magnesium 1.8 mg/dL (1.6-2.6); Osmolality,Calculated 291 (280-300); Potassium 4.2 mEq/L (3.5-5.1); Sodium 135 mEq/L (136-145); Total Protein 6.1 g/dL (6.4-8.9); Troponin I < 0.03 ng/mL (< 0.04); eGFR For African Americans 53 (> 60); eGFR For Non-African Americans 44 (> 60)
[2020-04-23] MEDS ORDERED: Isovue-370 500 ML BOTTLE IVP ONE (11:45)
[2020-04-23] MEDS ORDERED: 0.9 % Sodium Chloride 500 ML IVC ONE (12:24)
[2020-04-23] MEDS ORDERED: *HR* Dextrose 50 % in Water (Vial) 50 ML VIAL IVP PRN (13:35)
[2020-04-23] MEDS ORDERED: Acetaminophen 325 MG TABLET PO PRN (13:35)
[2020-04-23] MEDS ORDERED: Naloxone 0.4 MG/ML INJ IVP PRN (13:35)
[2020-04-23] MEDS ORDERED: Dextrose Gel 15 GM/37.5 ML TUBE PO PRN ×2 (13:35)
[2020-04-23] MEDS ORDERED: D5% in Water 1,000 ML IVC PRN (13:35)
[2020-04-23] MEDS: *HR* Heparin 5,000 UNIT/ML VIAL SQ SCH (17:36)
[2020-04-23] MEDS: Insulin LISPRO 300 UNITS/3 ML VIAL SQ SCH (17:37)
[2020-04-23] MEDS: *HR* OxyCODONE Immed Rel 5 MG TABLET PO PRN (17:37)
[2020-04-23] MEDS: Insulin DETEMIR 100 UNIT/ML X5UNITS SQ SCH (20:26)
[2020-04-24 01:09] LABS: Acinetobacter baumannii by PCR Not Detected (Not Detect); Candida albicans by PCR Not Detected (Not Detect); Candida glabrata by PCR Not Detected (Not Detect); Candida krusei by PCR Not Detected (Not Detect); Candida parapsilosis by PCR Not Detected (Not Detect); Candida tropicalis by PCR Not Detected (Not Detect); Enterobacter cloacae Cmplx PCR Not Detected (Not Detect); Enterobacteriaceae by PCR Not Detected (Not Detect); Escherichia coli by PCR Not Detected (Not Detect); Klebsiella oxytoca by PCR Not Detected (Not Detect); Klebsiella pneumoniae by PCR Not Detected (Not Detect); Proteus by PCR Not Detected (Not Detect); Pseudomonas aeruginosa by PCR Not Detected (Not Detect); Serratia marcescens by PCR Not Detected (Not Detect); Staphylococcus aureus by PCR Not Detected (Not Detect); Staphylococcus by PCR DETECTED (Not Detect); Streptococcus agalactiae(B)PCR Not Detected (Not Detect); Streptococcus by PCR Not Detected (Not Detect); Streptococcus pneumoniae PCR Not Detected (Not Detect); Streptococcus pyogenes (A) PCR Not Detected (Not Detect); blaKPC Carbapenem-Resist Gene Not Detected (Not Detect); mecA Methicillin-Resist Gene DETECTED (Not Detect); vanA/B Vancomycin-Resist Genes Not Detected (Not Detect)
[2020-04-24] MEDS ORDERED: Vancomycin 2,000 MG/520 ML IV.SOLN IVPB ONE (02:30)
[2020-04-24] MEDS: *HR* OxyCODONE Immed Rel 5 MG TABLET PO PRN (02:54)
[2020-04-24] MEDS: *HR* Heparin 5,000 UNIT/ML VIAL SQ SCH ×2 (05:12→17:32)
[2020-04-24 06:24] LABS: Basophils % 0.1 %; Eosinophils % 0.1 %; Hematocrit 33.1 % (35.3-44.9); Hemoglobin 10.1 g/dL (11.5-15.4); Immature Granulocytes % 0.7 % (0-4); Lymphocytes # 0.6 K/mcL (0.6-4.6); Lymphocytes % 6.2 %; Mean Corpuscular HGB Conc 30.5 g/dL (31.6-35.5); Mean Corpuscular Hemoglobin 27.8 pg (28.0-33.3); Mean Corpuscular Volume 91.2 fL (83.0-100.0); Monocytes # 0.3 K/mcL (0.0-1.3); Monocytes % 2.9 %; Neutrophils # 8.4 K/mcL (1.6-8.9); Platelet Count 183 K/mcL (140-400); Red Blood Count 3.63 M/mcL (3.82-4.97); Red Cell Distribution Width 15.5 % (11.5-14.5); White Blood Count 9.4 K/mcL (4.3-11.1)
[2020-04-24 06:33] LABS: Albumin 3.1 g/dL (3.5-5.7); Albumin/Globulin Ratio 1.1 (1.1-2.2); Bilirubin,Total 0.4 mg/dL (0.3-1.0); Calcium 8.5 mg/dL (8.6-10.3); Globulin 2.7 g/dL (2.4-3.5); Magnesium 1.9 mg/dL (1.6-2.6); Phosphorous 3.7 mg/dL (2.7-4.5); Total Protein 5.8 g/dL (6.4-8.9)
[2020-04-24 06:58] LABS: D-Dimer 1073 ng/mLFEU (0-500)
[2020-04-24 07:01] LABS: Fibrinogen 538 mg/dL (169-393)
[2020-04-24] MEDS: Dexamethasone 4 MG/ML VIAL IVP SCH (08:42)
[2020-04-24] MEDS: Insulin LISPRO 300 UNITS/3 ML VIAL SQ SCH ×3 (08:43→17:32)
[2020-04-24] MEDS ORDERED: Gentamicin 20 MG/2 ML VIAL IVPB SCH (11:00)
[2020-04-24] MEDS ORDERED: SODIUM CHLORIDE 0.9% IVPB ONE (12:00)
[2020-04-24] MEDS ORDERED: GENTAMICIN IVPB ONE (12:00)
[2020-04-24] MEDS: D5 IVPB SCH ×2 (12:44→23:49)
[2020-04-24] MEDS: SULFAMETHOXAZOLE IVPB SCH ×2 (12:44→23:49)
[2020-04-24] MEDS: TRIMETH IVPB SCH ×2 (12:44→23:49)
[2020-04-24] MEDS: WATER IVPB SCH ×2 (12:44→23:49)
[2020-04-24] MEDS ORDERED: Vancomycin 2,000 MG/520 ML IV.SOLN IVPB SCH (14:00)
[2020-04-24] MEDS ORDERED: Remdesivir 200 MG (Bolus) in 0.9 % Sodium Chloride 250 ML IVPB ONE (17:00)
[2020-04-24] MEDS: Insulin DETEMIR 100 UNIT/ML X5UNITS SQ SCH (20:45)
[2020-04-25] MEDS ORDERED: Gentamicin 140 MG in 0.9 % Sodium Chloride 100 ML IVPB SCH (01:00)
[2020-04-25] MEDS ORDERED: Vancomycin 2,000 MG/520 ML IV.SOLN IVPB SCH ×2 (02:00)
[2020-04-25] MEDS: Ondansetron 4 MG/2 ML VIAL IVP PRN (03:43)
[2020-04-25] MEDS: *HR* Heparin 5,000 UNIT/ML VIAL SQ SCH ×2 (05:44→21:08)
[2020-04-25 07:23] LABS: Basophils % 0.1 %; Eosinophils % 0.1 %; Hematocrit 33.7 % (35.3-44.9); Hemoglobin 10.3 g/dL (11.5-15.4); Immature Granulocytes % 0.8 % (0-4); Lymphocytes # 0.5 K/mcL (0.6-4.6); Mean Corpuscular HGB Conc 30.6 g/dL (31.6-35.5); Mean Corpuscular Hemoglobin 27.4 pg (28.0-33.3); Mean Corpuscular Volume 89.6 fL (83.0-100.0); Mean Platelet Volume 10.8 fL (9.4-12.4); Monocytes # 0.2 K/mcL (0.0-1.3); Monocytes % 2.1 %; Neutrophils # 8.5 K/mcL (1.6-8.9); Platelet Count 125 K/mcL (140-400); Red Blood Count 3.76 M/mcL (3.82-4.97); Red Cell Distribution Width 15.7 % (11.5-14.5); Segmented Neutrophils % 91.9 %; White Blood Count 9.2 K/mcL (4.3-11.1)
[2020-04-25 07:29] LABS: INR 1.2; Prothrombin Time 13.6 Seconds (9.4-12.1)
[2020-04-25 07:44] LABS: Albumin 3.1 g/dL (3.5-5.7); Albumin/Globulin Ratio 1.2 (1.1-2.2); Bilirubin,Total 0.2 mg/dL (0.3-1.0); Calcium 8.1 mg/dL (8.6-10.3); Globulin 2.6 g/dL (2.4-3.5); Potassium 4.2 mEq/L (3.5-5.1); Total Protein 5.7 g/dL (6.4-8.9)
[2020-04-25] MEDS: Dexamethasone 4 MG/ML VIAL IVP SCH (09:23)
[2020-04-25] MEDS: Insulin LISPRO 300 UNITS/3 ML VIAL SQ SCH ×3 (09:25→17:43)
[2020-04-25 11:15] LABS: Enterococcus by PCR Not Detected (Not Detect)
[2020-04-25] MEDS: Aspirin Enteric Coated 81 MG Tablet PO SCH (12:19)
[2020-04-25] MEDS: Metoprolol XL (24 HR) Succ 50 MG TAB.ER.24H PO SCH (12:19)
[2020-04-25] MEDS ORDERED: Gabapentin 400 MG CAPSULE PO SCH (13:00)
[2020-04-25] MEDS ORDERED: dexAMETHasone 4 MG TABLET PO ONE (14:45)
[2020-04-25] MEDS: Remdesivir 100 MG (x 4 Days) in 0.9 % Sodium Chloride 250 ML IVPB SCH (17:43)
[2020-04-25] MEDS: Gabapentin 300 MG CAPSULE PO SCH (21:08)
[2020-04-25] MEDS: Insulin DETEMIR 100 UNIT/ML X5UNITS SQ SCH (21:09)
[2020-04-25] MEDS ORDERED: Furosemide 40 MG/4 ML VIAL IVP ONE (22:12)
[2020-04-26] MEDS: Ondansetron 4 MG/2 ML VIAL IVP PRN (04:40)
[2020-04-26] MEDS: *HR* Heparin 5,000 UNIT/ML VIAL SQ SCH ×3 (05:43→22:01)
[2020-04-26 05:53] LABS: Albumin 3.1 g/dL (3.5-5.7); Albumin/Globulin Ratio 1.2 (1.1-2.2); Bilirubin,Total 0.3 mg/dL (0.3-1.0); Calcium 8.4 mg/dL (8.6-10.3); Globulin 2.6 g/dL (2.4-3.5); Potassium 5.2 mEq/L (3.5-5.1); Total Protein 5.7 g/dL (6.4-8.9)
[2020-04-26 06:13] LABS: INR 1.3; Prothrombin Time 14.5 Seconds (9.4-12.1)
[2020-04-26 07:12] LABS: Basophils % 0.3 %; Hematocrit 41.3 % (35.3-44.9); Immature Granulocytes % 0.6 % (0-4); Lymphocytes # 0.4 K/mcL (0.6-4.6); Lymphocytes % 4.1 %; Mean Corpuscular Hemoglobin 27.8 pg (28.0-33.3); Mean Corpuscular Volume 92.6 fL (83.0-100.0); Mean Platelet Volume 10.5 fL (9.4-12.4); Monocytes # 0.2 K/mcL (0.0-1.3); Neutrophils # 8.6 K/mcL (1.6-8.9); Platelet Count 164 K/mcL (140-400); Red Blood Count 4.46 M/mcL (3.82-4.97); Red Cell Distribution Width 15.5 % (11.5-14.5); White Blood Count 9.3 K/mcL (4.3-11.1)
[2020-04-26 07:29] LABS: Hemoglobin 12.4 g/dL (11.5-15.4)
[2020-04-26] MEDS: Metoprolol XL (24 HR) Succ 50 MG TAB.ER.24H PO SCH (07:35)
[2020-04-26] MEDS: Aspirin Enteric Coated 81 MG Tablet PO SCH (07:35)
[2020-04-26] MEDS: Gabapentin 300 MG CAPSULE PO SCH ×3 (07:35→22:00)
[2020-04-26] MEDS: Dexamethasone Sodium Phos/PF 10 MG/ML VIAL IVP SCH (07:36)
[2020-04-26] MEDS: Insulin LISPRO 300 UNITS/3 ML VIAL SQ SCH ×3 (08:14→17:01)
[2020-04-26] MEDS: *HR* OxyCODONE Immed Rel 5 MG TABLET PO PRN (11:58)
[2020-04-26] MEDS: Remdesivir 100 MG (x 4 Days) in 0.9 % Sodium Chloride 250 ML IVPB SCH (17:12)
[2020-04-26] MEDS: Insulin DETEMIR 100 UNIT/ML X5UNITS SQ SCH (22:00)
[2020-04-27] MEDS: *HR* Heparin 5,000 UNIT/ML VIAL SQ SCH ×2 (05:15→20:35)
[2020-04-27] MEDS: *HR* OxyCODONE Immed Rel 5 MG TABLET PO PRN ×2 (06:03→20:36)
[2020-04-27 06:49] LABS: INR 1.1; Prothrombin Time 12.6 Seconds (9.4-12.1)
[2020-04-27] MEDS: Aspirin Enteric Coated 81 MG Tablet PO SCH (08:15)
[2020-04-27] MEDS: Gabapentin 300 MG CAPSULE PO SCH ×3 (08:15→20:36)
[2020-04-27] MEDS: Metoprolol XL (24 HR) Succ 50 MG TAB.ER.24H PO SCH (08:15)
[2020-04-27] MEDS: Dexamethasone Sodium Phos/PF 10 MG/ML VIAL IVP SCH (08:16)
[2020-04-27] MEDS: Insulin LISPRO 300 UNITS/3 ML VIAL SQ SCH ×3 (08:46→17:25)
[2020-04-27 09:48] LABS: Albumin 2.7 g/dL (3.5-5.7); Bilirubin,Total 0.3 mg/dL (0.3-1.0); Calcium 7.9 mg/dL (8.6-10.3); Globulin 2.7 g/dL (2.4-3.5); Potassium 5.6 mEq/L (3.5-5.1); Total Protein 5.4 g/dL (6.4-8.9)
[2020-04-27 18:45] LABS: Basophils % 0.1 %; Eosinophils % 0.1 %; Hematocrit 33.3 % (35.3-44.9); Hemoglobin 10.7 g/dL (11.5-15.4); Immature Granulocytes % 1.3 % (0-4); Lymphocytes # 0.2 K/mcL (0.6-4.6); Lymphocytes % 1.6 %; Mean Corpuscular HGB Conc 32.1 g/dL (31.6-35.5); Mean Corpuscular Hemoglobin 27.4 pg (28.0-33.3); Mean Corpuscular Volume 85.4 fL (83.0-100.0); Mean Platelet Volume 10.5 fL (9.4-12.4); Monocytes # 0.1 K/mcL (0.0-1.3); Monocytes % 0.9 %; Neutrophils # 14.3 K/mcL (1.6-8.9); Platelet Count 153 K/mcL (140-400); Red Cell Distribution Width 15.3 % (11.5-14.5); White Blood Count 14.9 K/mcL (4.3-11.1)
[2020-04-27] MEDS ORDERED: *HR* LORazepam 2 MG/ML VIAL IVP PRN (20:24)
[2020-04-27] MEDS: Insulin DETEMIR 100 UNIT/ML X5UNITS SQ SCH (20:35)
[2020-04-28] MEDS: *HR* Heparin 5,000 UNIT/ML VIAL SQ SCH ×3 (05:45→20:45)
[2020-04-28] MEDS: *HR* OxyCODONE Immed Rel 5 MG TABLET PO PRN ×3 (05:45→20:44)
[2020-04-28 06:29] LABS: Basophils % 0.2 %; Eosinophils % 0.1 %; Hematocrit 39.7 % (35.3-44.9); Hemoglobin 12.2 g/dL (11.5-15.4); Immature Granulocytes % 1.5 % (0-4); Lymphocytes # 0.6 K/mcL (0.6-4.6); Lymphocytes % 3.2 %; Mean Corpuscular HGB Conc 30.7 g/dL (31.6-35.5); Mean Corpuscular Hemoglobin 27.7 pg (28.0-33.3); Mean Corpuscular Volume 90.2 fL (83.0-100.0); Mean Platelet Volume 10.2 fL (9.4-12.4); Monocytes # 0.3 K/mcL (0.0-1.3); Monocytes % 1.7 %; Neutrophils # 16.9 K/mcL (1.6-8.9); Platelet Count 190 K/mcL (140-400); Red Cell Distribution Width 15.4 % (11.5-14.5); Segmented Neutrophils % 93.3 %; White Blood Count 18.1 K/mcL (4.3-11.1)
[2020-04-28 06:31] LABS: INR 1.2; Prothrombin Time 13.9 Seconds (9.4-12.1)
[2020-04-28 06:58] LABS: Albumin 2.9 g/dL (3.5-5.7); Albumin/Globulin Ratio 1.1 (1.1-2.2); Bilirubin,Total 0.4 mg/dL (0.3-1.0); Calcium 8.2 mg/dL (8.6-10.3); Globulin 2.7 g/dL (2.4-3.5); Total Protein 5.6 g/dL (6.4-8.9)
[2020-04-28 09:59] LABS: ABG Base Excess 1 mEq/L (-2 to 3); ABG HCO3 27 mEq/L (21-27); ABG Oxygen Saturation 95 % (95-98); ABG PCO2 45 mmHg (35-45); ABG PH 7.38 pH Units (7.32-7.45); ABG PO2 78 mmHg (85-104); ABG TCO2 28 mEq/L (20-26)
[2020-04-28] MEDS: Insulin LISPRO 300 UNITS/3 ML VIAL SQ SCH ×3 (10:04→19:49)
[2020-04-28] MEDS: Dexamethasone Sodium Phos/PF 10 MG/ML VIAL IVP SCH (10:07)
[2020-04-28] MEDS: Aspirin Enteric Coated 81 MG Tablet PO SCH (10:07)
[2020-04-28] MEDS: Metoprolol XL (24 HR) Succ 50 MG TAB.ER.24H PO SCH (10:08)
[2020-04-28] MEDS: Gabapentin 300 MG CAPSULE PO SCH (10:09)
[2020-04-28] MEDS: Insulin DETEMIR 100 UNIT/ML X5UNITS SQ SCH (20:45)
[2020-04-28 21:18] LABS: Bacteria,Urine Few per hpf (None-Few); Bilirubin,Urine Negative (Negative); Blood,Urine Negative (Negative); Budding Yeast,Urine Few per hpf (None Seen); Clarity,Urine Turbid (Clear); Color,Urine Light-Yellow (Yellow); Glucose,Urine (UA) >=1000 mg/dL (Normal); Hyaline Casts,Urine Few per lpf (None Seen); Ketones,Urine Negative (Negative); Leukocyte Esterase,Urine Negative (Negative); Mucus,Urine Few per lpf (None-Few); Nitrite,Urine Negative (Negative); PH,Urine 5.5 pH Units (5.0-8.0); Protein,Urine Trace mg/dL (Neg-Trace); RBC,Urine 0-3 per hpf (0-3); Renal Epithelial Cells,Urine Few per hpf (None-Few); Squamous Epithelial Cell,Urine Few per hpf (None-Few); Urobilinogen,Urine Normal (Normal)
[2020-04-28 21:23] LABS: Sodium, Urine 24.1 mEq/L
[2020-04-29] MEDS: *HR* OxyCODONE Immed Rel 5 MG TABLET PO PRN ×2 (03:55→16:38)
[2020-04-29] MEDS: *HR* Heparin 5,000 UNIT/ML VIAL SQ SCH ×4 (06:23→22:24)
[2020-04-29 07:48] LABS: Heparin anti-factor XA UFH 0.1 IU/mL (0.30-0.70); INR 1.1; Prothrombin Time 13.2 Seconds (9.4-12.1)
[2020-04-29 07:54] LABS: Basophils % 0.1 %; Hematocrit 32.9 % (35.3-44.9); Lymphocytes # 0.3 K/mcL (0.6-4.6); Lymphocytes % 2.3 %; Mean Corpuscular HGB Conc 32.2 g/dL (31.6-35.5); Mean Corpuscular Hemoglobin 28.2 pg (28.0-33.3); Mean Corpuscular Volume 87.5 fL (83.0-100.0); Monocytes # 0.2 K/mcL (0.0-1.3); Monocytes % 1.4 %; Neutrophils # 13.2 K/mcL (1.6-8.9); Platelet Count 161 K/mcL (140-400); Red Blood Count 3.76 M/mcL (3.82-4.97); Segmented Neutrophils % 95.2 %; White Blood Count 13.9 K/mcL (4.3-11.1)
[2020-04-29 08:01] LABS: Hemoglobin 10.6 g/dL (11.5-15.4)
[2020-04-29 08:03] LABS: Albumin 2.7 g/dL (3.5-5.7); Bilirubin,Total 0.3 mg/dL (0.3-1.0); Calcium 8.3 mg/dL (8.6-10.3); Globulin 2.7 g/dL (2.4-3.5); Magnesium 2.4 mg/dL (1.6-2.6); Phosphorous 5.2 mg/dL (2.7-4.5); Total Protein 5.4 g/dL (6.4-8.9)
[2020-04-29] MEDS: Metoprolol XL (24 HR) Succ 50 MG TAB.ER.24H PO SCH (09:49)
[2020-04-29] MEDS: Aspirin Enteric Coated 81 MG Tablet PO SCH (09:49)
[2020-04-29] MEDS: Dexamethasone Sodium Phos/PF 10 MG/ML VIAL IVP SCH (09:49)
[2020-04-29] MEDS: Insulin LISPRO 300 UNITS/3 ML VIAL SQ SCH ×4 (10:25→22:25)
[2020-04-29] MEDS: Insulin DETEMIR 100 UNIT/ML X5UNITS SQ SCH (20:24)
[2020-04-30 04:22] LABS: VBG Ionized Calcium 1.12 mmol/L (1.15-1.35)
[2020-04-30 04:26] LABS: Basophils % 0.1 %; Hematocrit 33.1 % (35.3-44.9); Hemoglobin 10.2 g/dL (11.5-15.4); Immature Granulocytes % 0.9 % (0-4); Lymphocytes # 0.2 K/mcL (0.6-4.6); Lymphocytes % 1.4 %; Mean Corpuscular HGB Conc 30.8 g/dL (31.6-35.5); Mean Corpuscular Volume 87.6 fL (83.0-100.0); Mean Platelet Volume 10.3 fL (9.4-12.4); Monocytes # 0.2 K/mcL (0.0-1.3); Monocytes % 1.4 %; Neutrophils # 12.7 K/mcL (1.6-8.9); Platelet Count 169 K/mcL (140-400); Red Blood Count 3.78 M/mcL (3.82-4.97); Red Cell Distribution Width 14.9 % (11.5-14.5); Segmented Neutrophils % 96.2 %; White Blood Count 13.2 K/mcL (4.3-11.1)
[2020-04-30 04:37] LABS: Albumin 2.6 g/dL (3.5-5.7); Bilirubin,Total 0.4 mg/dL (0.3-1.0); Calcium 8.5 mg/dL (8.6-10.3); Globulin 2.6 g/dL (2.4-3.5); Magnesium 2.6 mg/dL (1.6-2.6); Phosphorous 4.8 mg/dL (2.7-4.5); Total Protein 5.2 g/dL (6.4-8.9)
[2020-04-30] MEDS: *HR* Heparin 5,000 UNIT/ML VIAL SQ SCH ×3 (05:29→20:59)
[2020-04-30] MEDS: Aspirin Enteric Coated 81 MG Tablet PO SCH (08:51)
[2020-04-30] MEDS: Metoprolol XL (24 HR) Succ 50 MG TAB.ER.24H PO SCH (08:51)
[2020-04-30] MEDS: Insulin LISPRO 300 UNITS/3 ML VIAL SQ SCH ×3 (09:00→16:18)
[2020-04-30] MEDS ORDERED: Dexamethasone Sodium Phos/PF 10 MG/ML VIAL IVP SCH (09:00)
[2020-04-30] MEDS ORDERED: Acetaminophen 325 MG TABLET PO PRN (13:42)
[2020-04-30] MEDS ORDERED: *HR* OxyCODONE Immed Rel 5 MG TABLET PO PRN (13:42)
[2020-04-30] MEDS ORDERED: *HR* Dextrose 50 % in Water (Vial) 50 ML VIAL IVP PRN (13:42)
[2020-04-30] MEDS ORDERED: D5% in Water 1,000 ML IVC PRN (13:42)
[2020-04-30] MEDS ORDERED: Naloxone 0.4 MG/ML INJ IVP PRN (13:42)
[2020-04-30] MEDS ORDERED: Dextrose Gel 15 GM/37.5 ML TUBE PO PRN ×2 (13:42)
[2020-04-30] MEDS: Insulin DETEMIR 100 UNIT/ML X5UNITS SQ SCH (20:59)
[2020-05-01] MEDS: *HR* Heparin 5,000 UNIT/ML VIAL SQ SCH ×3 (04:45→20:18)
[2020-05-01] MEDS: Ondansetron 4 MG/2 ML VIAL IVP PRN (04:46)
[2020-05-01 05:17] LABS: Basophils % 0.1 %; Eosinophils # 0.1 K/mcL (0.0-0.6); Eosinophils % 0.8 %; Hematocrit 36.2 % (35.3-44.9); Hemoglobin 11.3 g/dL (11.5-15.4); Lymphocytes # 0.3 K/mcL (0.6-4.6); Lymphocytes % 1.9 %; Mean Corpuscular HGB Conc 31.2 g/dL (31.6-35.5); Mean Corpuscular Hemoglobin 27.2 pg (28.0-33.3); Mean Corpuscular Volume 87.2 fL (83.0-100.0); Mean Platelet Volume 10.6 fL (9.4-12.4); Monocytes # 0.2 K/mcL (0.0-1.3); Monocytes % 1.3 %; Neutrophils # 15.9 K/mcL (1.6-8.9); Platelet Count 194 K/mcL (140-400); Red Blood Count 4.15 M/mcL (3.82-4.97); Red Cell Distribution Width 14.8 % (11.5-14.5); Segmented Neutrophils % 94.9 %; White Blood Count 16.8 K/mcL (4.3-11.1)
[2020-05-01 05:28] LABS: Albumin 2.6 g/dL (3.5-5.7); Albumin/Globulin Ratio 0.9 (1.1-2.2); Bilirubin,Total 0.5 mg/dL (0.3-1.0); Calcium 8.5 mg/dL (8.6-10.3); Globulin 2.8 g/dL (2.4-3.5); Magnesium 2.5 mg/dL (1.6-2.6); Phosphorous 2.6 mg/dL (2.7-4.5); Potassium 5.2 mEq/L (3.5-5.1); Total Protein 5.4 g/dL (6.4-8.9)
[2020-05-01] MEDS: Metoprolol XL (24 HR) Succ 50 MG TAB.ER.24H PO SCH (10:07)
[2020-05-01] MEDS: Aspirin Enteric Coated 81 MG Tablet PO SCH (10:07)
[2020-05-01] MEDS: Dexamethasone Sodium Phos/PF 10 MG/ML VIAL IVP SCH (10:08)
[2020-05-01] MEDS: Insulin LISPRO 300 UNITS/3 ML VIAL SQ SCH ×3 (11:00→17:17)
[2020-05-01] MEDS: Insulin DETEMIR 100 UNIT/ML X5UNITS SQ SCH (20:31)
[2020-05-02 04:00] LABS: Basophils % 0.1 %; Eosinophils # 0.1 K/mcL (0.0-0.6); Eosinophils % 0.7 %; Hematocrit 35.4 % (35.3-44.9); Hemoglobin 11.1 g/dL (11.5-15.4); Immature Granulocytes % 0.9 % (0-4); Lymphocytes # 0.4 K/mcL (0.6-4.6); Lymphocytes % 2.5 %; Mean Corpuscular HGB Conc 31.4 g/dL (31.6-35.5); Mean Corpuscular Hemoglobin 27.2 pg (28.0-33.3); Mean Corpuscular Volume 86.8 fL (83.0-100.0); Mean Platelet Volume 10.7 fL (9.4-12.4); Monocytes # 0.3 K/mcL (0.0-1.3); Monocytes % 1.7 %; Neutrophils # 14.1 K/mcL (1.6-8.9); Platelet Count 187 K/mcL (140-400); Red Blood Count 4.08 M/mcL (3.82-4.97); Red Cell Distribution Width 14.7 % (11.5-14.5); Segmented Neutrophils % 94.1 %
[2020-05-02 04:05] LABS: VBG Ionized Calcium 1.11 mmol/L (1.15-1.35)
[2020-05-02 04:20] LABS: Albumin 2.6 g/dL (3.5-5.7); Albumin/Globulin Ratio 0.9 (1.1-2.2); Bilirubin,Total 0.6 mg/dL (0.3-1.0); Calcium 8.5 mg/dL (8.6-10.3); Globulin 2.8 g/dL (2.4-3.5); Magnesium 2.3 mg/dL (1.6-2.6); Phosphorous 3.7 mg/dL (2.7-4.5); Potassium 5.6 mEq/L (3.5-5.1); Total Protein 5.4 g/dL (6.4-8.9)
[2020-05-02] MEDS: *HR* Heparin 5,000 UNIT/ML VIAL SQ SCH ×3 (05:20→21:30)
[2020-05-02] MEDS: Ondansetron 4 MG/2 ML VIAL IVP PRN ×2 (05:38→19:13)
[2020-05-02] MEDS ORDERED: *HR* Dextrose 50 % in Water (Vial) 50 ML VIAL IVP ONE (07:22)
[2020-05-02] MEDS ORDERED: Insulin Human Regular 10 UNIT in 0.9 % Sodium Chloride 10 ML IV ONE (07:22)
[2020-05-02] MEDS: Metoclopramide 10 MG/2 ML VIAL IVP PRN (08:36)
[2020-05-02] MEDS: Dexamethasone Sodium Phos/PF 10 MG/ML VIAL IVP SCH (08:37)
[2020-05-02] MEDS ORDERED: Furosemide 20 MG/2 ML VIAL IVP ONE (08:39)
[2020-05-02] MEDS: Insulin LISPRO 300 UNITS/3 ML VIAL SQ SCH ×3 (10:04→15:45)
[2020-05-02] MEDS: Aspirin Enteric Coated 81 MG Tablet PO SCH (10:05)
[2020-05-02] MEDS: Metoprolol XL (24 HR) Succ 50 MG TAB.ER.24H PO SCH (10:05)
[2020-05-02] MEDS: Insulin DETEMIR 100 UNIT/ML X5UNITS SQ SCH (21:13)
[2020-05-03] MEDS: Metoclopramide 10 MG/2 ML VIAL IVP PRN ×2 (01:26→19:28)
[2020-05-03] MEDS: *HR* LORazepam 2 MG/ML VIAL IVP PRN (04:28)
[2020-05-03] MEDS: *HR* Heparin 5,000 UNIT/ML VIAL SQ SCH ×3 (05:22→21:11)
[2020-05-03 05:27] LABS: VBG Ionized Calcium 1.02 mmol/L (1.15-1.35)
[2020-05-03 05:31] LABS: Basophils % 0.1 %; Eosinophils # 0.2 K/mcL (0.0-0.6); Eosinophils % 1.6 %; Hemoglobin 11.5 g/dL (11.5-15.4); Immature Granulocytes % 1.4 % (0-4); Lymphocytes # 0.3 K/mcL (0.6-4.6); Lymphocytes % 2.3 %; Mean Corpuscular HGB Conc 32.9 g/dL (31.6-35.5); Mean Corpuscular Hemoglobin 28.5 pg (28.0-33.3); Mean Corpuscular Volume 86.8 fL (83.0-100.0); Mean Platelet Volume 10.6 fL (9.4-12.4); Monocytes # 0.2 K/mcL (0.0-1.3); Monocytes % 1.5 %; Neutrophils # 13.3 K/mcL (1.6-8.9); Platelet Count 186 K/mcL (140-400); Red Blood Count 4.03 M/mcL (3.82-4.97); Red Cell Distribution Width 14.6 % (11.5-14.5); Segmented Neutrophils % 93.1 %; White Blood Count 14.3 K/mcL (4.3-11.1)
[2020-05-03 05:51] LABS: Albumin 2.7 g/dL (3.5-5.7); Bilirubin,Total 0.7 mg/dL (0.3-1.0); Calcium 8.4 mg/dL (8.6-10.3); Globulin 2.8 g/dL (2.4-3.5); Magnesium 2.1 mg/dL (1.6-2.6); Phosphorous 4.3 mg/dL (2.7-4.5); Potassium 5.1 mEq/L (3.5-5.1); Total Protein 5.5 g/dL (6.4-8.9)
[2020-05-03] MEDS: Metoprolol XL (24 HR) Succ 50 MG TAB.ER.24H PO SCH (07:26)
[2020-05-03] MEDS: Aspirin Enteric Coated 81 MG Tablet PO SCH (07:26)
[2020-05-03] MEDS: Dexamethasone Sodium Phos/PF 10 MG/ML VIAL IVP SCH (07:39)
[2020-05-03] MEDS ORDERED: *HR* Dextrose 50 % in Water (Vial) 50 ML VIAL IVP ONE (08:31)
[2020-05-03] MEDS ORDERED: *HR* Metoprolol 5 MG/5 ML VIAL IVP PRN (08:31)
[2020-05-03] MEDS ORDERED: Insulin Human Regular 10 UNIT in 0.9 % Sodium Chloride 10 ML IV ONE (08:31)
[2020-05-03] MEDS: Insulin LISPRO 300 UNITS/3 ML VIAL SQ SCH ×3 (09:50→17:50)
[2020-05-03] MEDS: Insulin DETEMIR 100 UNIT/ML X5UNITS SQ SCH (21:10)
[2020-05-03] MEDS: Ondansetron 4 MG/2 ML VIAL IVP PRN (21:11)
[2020-05-04] MEDS: Ondansetron 4 MG/2 ML VIAL IVP PRN (05:46)
[2020-05-04] MEDS: *HR* Heparin 5,000 UNIT/ML VIAL SQ SCH ×3 (05:46→21:11)
[2020-05-04] MEDS: Dexamethasone Sodium Phos/PF 10 MG/ML VIAL IVP SCH (08:12)
[2020-05-04] MEDS: Metoprolol XL (24 HR) Succ 50 MG TAB.ER.24H PO SCH (08:12)
[2020-05-04] MEDS: Aspirin Enteric Coated 81 MG Tablet PO SCH (08:12)
[2020-05-04] MEDS: Pantoprazole 40 MG VIAL IVP SCH (08:12)
[2020-05-04] MEDS: Insulin LISPRO 300 UNITS/3 ML VIAL SQ SCH ×3 (08:43→15:48)
[2020-05-04] MEDS: *HR* LORazepam 2 MG/ML VIAL IVP PRN (09:42)
[2020-05-04] MEDS: Insulin DETEMIR 100 UNIT/ML X5UNITS SQ SCH (21:10)
[2020-05-04] MEDS: Nystatin POWDER 30 GM BOTTLE TP SCH (21:11)
[2020-05-05] MEDS: *HR* Heparin 5,000 UNIT/ML VIAL SQ SCH (04:04)
[2020-05-05 05:05] LABS: Basophils # 0.1 K/mcL (0.0-0.2); Basophils % 0.4 %; Eosinophils # 0.2 K/mcL (0.0-0.6); Eosinophils % 0.9 %; Hematocrit 40.3 % (35.3-44.9); Hemoglobin 12.6 g/dL (11.5-15.4); Immature Granulocytes % 2.6 % (0-4); Lymphocytes # 0.6 K/mcL (0.6-4.6); Lymphocytes % 3.4 %; Mean Corpuscular HGB Conc 31.3 g/dL (31.6-35.5); Mean Corpuscular Hemoglobin 28.4 pg (28.0-33.3); Mean Corpuscular Volume 90.8 fL (83.0-100.0); Mean Platelet Volume 11.3 fL (9.4-12.4); Monocytes # 0.3 K/mcL (0.0-1.3); Monocytes % 1.7 %; Neutrophils # 16.5 K/mcL (1.6-8.9); Platelet Count 169 K/mcL (140-400); Red Blood Count 4.44 M/mcL (3.82-4.97); Red Cell Distribution Width 14.6 % (11.5-14.5); White Blood Count 18.2 K/mcL (4.3-11.1)
[2020-05-05 05:14] LABS: VBG Ionized Calcium 0.54 mmol/L (1.15-1.35)
[2020-05-05 06:44] LABS: Albumin 2.7 g/dL (3.5-5.7); Bilirubin,Total 0.5 mg/dL (0.3-1.0); Calcium 8.6 mg/dL (8.6-10.3); Globulin 2.7 g/dL (2.4-3.5); Magnesium 2.3 mg/dL (1.6-2.6); Phosphorous 4.4 mg/dL (2.7-4.5); Potassium 4.5 mEq/L (3.5-5.1); Total Protein 5.4 g/dL (6.4-8.9)
[2020-05-05] MEDS ORDERED: Dexamethasone 4 MG/ML VIAL IVP SCH (07:30)
[2020-05-05] MEDS: Insulin LISPRO 300 UNITS/3 ML VIAL SQ SCH ×3 (07:38→16:32)
[2020-05-05] MEDS: Metoprolol XL (24 HR) Succ 50 MG TAB.ER.24H PO SCH (07:39)
[2020-05-05] MEDS: Aspirin Enteric Coated 81 MG Tablet PO SCH (07:39)
[2020-05-05] MEDS: Pantoprazole 40 MG VIAL IVP SCH (07:39)
[2020-05-05] MEDS: Nystatin POWDER 30 GM BOTTLE TP SCH ×2 (07:40→20:43)
[2020-05-05] MEDS: Calcium Gluconate 1gm/50mL 1 GM/50 ML BAG IVPB SCH ×2 (07:52→10:31)
[2020-05-05] MEDS: Ondansetron 4 MG/2 ML VIAL IVP PRN ×2 (11:08→20:24)
[2020-05-05] MEDS: *HR* Enoxaparin 120 MG/0.8 ML SYRINGE SQ SCH (16:40)
[2020-05-05] MEDS: Insulin DETEMIR 100 UNIT/ML X5UNITS SQ SCH (20:25)
[2020-05-06] MEDS: *HR* Enoxaparin 120 MG/0.8 ML SYRINGE SQ SCH ×2 (05:23→17:00)
[2020-05-06] MEDS: Ondansetron 4 MG/2 ML VIAL IVP PRN ×3 (05:24→20:35)
[2020-05-06] MEDS ORDERED: *HR* Enoxaparin 40 MG/0.4 ML SYRINGE SQ SCH ×2 (06:00→18:00)
[2020-05-06] MEDS: Dexamethasone 4 MG/ML VIAL IVP SCH (07:57)
[2020-05-06] MEDS: Aspirin Enteric Coated 81 MG Tablet PO SCH (07:57)
[2020-05-06] MEDS: Metoprolol XL (24 HR) Succ 50 MG TAB.ER.24H PO SCH (07:57)
[2020-05-06] MEDS: Insulin LISPRO 300 UNITS/3 ML VIAL SQ SCH ×3 (08:02→17:00)
[2020-05-06] MEDS: Nystatin POWDER 30 GM BOTTLE TP SCH ×2 (08:03→20:14)
[2020-05-06 14:02] LABS: Hematocrit 34.7 % (35.3-44.9); Mean Corpuscular HGB Conc 31.7 g/dL (31.6-35.5); Mean Corpuscular Hemoglobin 27.8 pg (28.0-33.3); Mean Corpuscular Volume 87.6 fL (83.0-100.0); Mean Platelet Volume 10.9 fL (9.4-12.4); Platelet Count 191 K/mcL (140-400); Red Blood Count 3.96 M/mcL (3.82-4.97); Red Cell Distribution Width 14.6 % (11.5-14.5); White Blood Count 18.8 K/mcL (4.3-11.1)
[2020-05-06 14:04] LABS: Calcium 8.7 mg/dL (8.6-10.3); Potassium 5.6 mEq/L (3.5-5.1)
[2020-05-06] MEDS: Insulin DETEMIR 100 UNIT/ML X5UNITS SQ SCH (20:14)
[2020-05-06] MEDS ORDERED: Morphine Sulfate 2 MG/ML SYRINGE IVP ONE (21:02)
[2020-05-07] MEDS ORDERED: Morphine Sulfate 2 MG/ML SYRINGE IVP ONE (01:47)
[2020-05-07] MEDS: *HR* Enoxaparin 120 MG/0.8 ML SYRINGE SQ SCH ×2 (05:55→17:43)
[2020-05-07] MEDS: Insulin LISPRO 300 UNITS/3 ML VIAL SQ SCH ×3 (08:44→17:42)
[2020-05-07] MEDS: Aspirin Enteric Coated 81 MG Tablet PO SCH (08:45)
[2020-05-07] MEDS: Metoprolol XL (24 HR) Succ 50 MG TAB.ER.24H PO SCH (08:46)
[2020-05-07] MEDS: Dexamethasone 4 MG/ML VIAL IVP SCH (09:38)
[2020-05-07] MEDS: Nystatin POWDER 30 GM BOTTLE TP SCH ×2 (09:39→20:38)
[2020-05-07] MEDS ORDERED: 0.9 % Sodium Chloride 1,000 ML IVC SCH (09:45)
[2020-05-07] MEDS: Ondansetron 4 MG/2 ML VIAL IVP PRN (11:31)
[2020-05-07] MEDS: levoFLOXacin 750 MG/150 ML 750 MG/150 ML BAG IVPB SCH (13:34)
[2020-05-07] MEDS: *HR* Heparin 5,000 UNIT/ML VIAL SQ SCH (15:06)
[2020-05-07] MEDS: Insulin DETEMIR 100 UNIT/ML X5UNITS SQ SCH (20:38)
[2020-05-08] MEDS: *HR* Enoxaparin 120 MG/0.8 ML SYRINGE SQ SCH (05:11)
[2020-05-08] MEDS: Metoprolol XL (24 HR) Succ 50 MG TAB.ER.24H PO SCH (09:11)
[2020-05-08] MEDS: Aspirin Enteric Coated 81 MG Tablet PO SCH (09:11)
[2020-05-08] MEDS: Insulin LISPRO 300 UNITS/3 ML VIAL SQ SCH ×3 (09:11→17:21)
[2020-05-08] MEDS: Dexamethasone 4 MG/ML VIAL IVP SCH (09:12)
[2020-05-08] MEDS: levoFLOXacin 750 MG/150 ML 750 MG/150 ML BAG IVPB SCH (09:12)
[2020-05-08] MEDS: Ondansetron 4 MG/2 ML VIAL IVP PRN (10:18)
[2020-05-08] MEDS: Nystatin POWDER 30 GM BOTTLE TP SCH ×2 (10:18→20:09)
[2020-05-08 13:01] LABS: Hematocrit 34.5 % (35.3-44.9); Hemoglobin 10.9 g/dL (11.5-15.4); Mean Corpuscular HGB Conc 31.6 g/dL (31.6-35.5); Mean Corpuscular Hemoglobin 27.8 pg (28.0-33.3); Mean Platelet Volume 10.7 fL (9.4-12.4); Platelet Count 191 K/mcL (140-400); Red Blood Count 3.92 M/mcL (3.82-4.97); Red Cell Distribution Width 14.9 % (11.5-14.5); White Blood Count 16.6 K/mcL (4.3-11.1)
[2020-05-08 13:20] LABS: Magnesium 2.1 mg/dL (1.6-2.6); Phosphorous 3.7 mg/dL (2.7-4.5)
[2020-05-08 13:21] LABS: Albumin 2.8 g/dL (3.5-5.7); Bilirubin,Total 0.5 mg/dL (0.3-1.0); Calcium 8.3 mg/dL (8.6-10.3); Globulin 2.7 g/dL (2.4-3.5); Total Protein 5.5 g/dL (6.4-8.9)
[2020-05-08] MEDS: Insulin DETEMIR 100 UNIT/ML X5UNITS SQ SCH (21:44)
[2020-05-09] MEDS: *HR* LORazepam 2 MG/ML VIAL IVP PRN ×2 (03:42→19:21)
[2020-05-09] MEDS: Ondansetron 4 MG/2 ML VIAL IVP PRN ×2 (04:59→23:33)
[2020-05-09] MEDS ORDERED: *HR* Enoxaparin 30 MG/0.3 ML SYRINGE SQ SCH (06:00)
[2020-05-09] MEDS: Insulin LISPRO 300 UNITS/3 ML VIAL SQ SCH ×5 (07:49→20:30)
[2020-05-09] MEDS: Metoprolol XL (24 HR) Succ 50 MG TAB.ER.24H PO SCH (07:50)
[2020-05-09] MEDS: Aspirin Enteric Coated 81 MG Tablet PO SCH (07:50)
[2020-05-09] MEDS: Dexamethasone 4 MG/ML VIAL IVP SCH (08:47)
[2020-05-09] MEDS: levoFLOXacin 750 MG/150 ML 750 MG/150 ML BAG IVPB SCH (08:47)
[2020-05-09] MEDS ORDERED: Lidocaine -MPF 1% 5 ML AMPUL INFILT ONE (10:22)
[2020-05-09] MEDS: Nystatin POWDER 30 GM BOTTLE TP SCH ×2 (10:38→19:23)
[2020-05-09] MEDS ORDERED: D10% in Water 500 ML IVC PRN (11:58)
[2020-05-09] MEDS ORDERED: Clinimix E 5%-15% SOLUTION 2,000 ML with MVI, adult with vitamin K 10 ML IVC SCH (17:00)
[2020-05-09] MEDS: *HR* Enoxaparin 40 MG/0.4 ML SYRINGE SQ SCH (19:26)
[2020-05-09] MEDS: Insulin DETEMIR 100 UNIT/ML X5UNITS SQ SCH (20:30)
[2020-05-10] MEDS: Morphine Sulfate 2 MG/ML SYRINGE IVP PRN (00:19)
[2020-05-10] MEDS: Dexmedetomidine HCl 400 MCG/100 ML MLS IVC SCH ×4 (00:33→23:42)
[2020-05-10] MEDS: Insulin LISPRO 300 UNITS/3 ML VIAL SQ SCH ×10 (01:06→23:53)
[2020-05-10 04:42] LABS: VBG Ionized Calcium 1.26 mmol/L (1.15-1.35)
[2020-05-10 04:57] LABS: Hematocrit 28.9 % (35.3-44.9); Mean Corpuscular HGB Conc 31.5 g/dL (31.6-35.5); Mean Corpuscular Hemoglobin 28.9 pg (28.0-33.3); Mean Corpuscular Volume 91.7 fL (83.0-100.0); Mean Platelet Volume 10.7 fL (9.4-12.4); Platelet Count 140 K/mcL (140-400); Red Blood Count 3.15 M/mcL (3.82-4.97); Red Cell Distribution Width 15.1 % (11.5-14.5); White Blood Count 14.6 K/mcL (4.3-11.1)
[2020-05-10 04:59] LABS: Hemoglobin 9.1 g/dL (11.5-15.4)
[2020-05-10 05:03] LABS: Calcium 8.6 mg/dL (8.6-10.3); Magnesium 2.2 mg/dL (1.6-2.6); Phosphorous 3.1 mg/dL (2.7-4.5); Potassium 4.4 mEq/L (3.5-5.1)
[2020-05-10] MEDS: levoFLOXacin 750 MG/150 ML 750 MG/150 ML BAG IVPB SCH (07:41)
[2020-05-10] MEDS: *HR* Enoxaparin 40 MG/0.4 ML SYRINGE SQ SCH ×2 (07:42→20:00)
[2020-05-10] MEDS: Dexamethasone 4 MG/ML VIAL IVP SCH (07:42)
[2020-05-10] MEDS: Metoprolol XL (24 HR) Succ 50 MG TAB.ER.24H PO SCH (07:45)
[2020-05-10] MEDS: Aspirin Enteric Coated 81 MG Tablet PO SCH (07:45)
[2020-05-10] MEDS: Furosemide 40 MG/4 ML VIAL IVP SCH (07:56)
[2020-05-10] MEDS: Nystatin POWDER 30 GM BOTTLE TP SCH ×2 (08:17→20:06)
[2020-05-10] MEDS ORDERED: Clinimix E 5%-15% SOLUTION 2,000 ML with MVI, adult with vitamin K 10 ML IVC SCH (17:00)
[2020-05-10] MEDS: *HR* LORazepam 2 MG/ML VIAL IVP PRN (19:58)
[2020-05-10] MEDS ORDERED: Insulin DETEMIR 100 UNIT/ML X5UNITS SQ SCH (21:00)
[2020-05-11] MEDS: Insulin LISPRO 300 UNITS/3 ML VIAL SQ SCH ×5 (00:26→07:53)
[2020-05-11 05:26] LABS: Hematocrit 28.8 % (35.3-44.9); Mean Corpuscular HGB Conc 31.3 g/dL (31.6-35.5); Mean Corpuscular Hemoglobin 28.1 pg (28.0-33.3); Mean Platelet Volume 10.7 fL (9.4-12.4); Platelet Count 120 K/mcL (140-400); White Blood Count 12.7 K/mcL (4.3-11.1)
[2020-05-11 05:34] LABS: INR 1.2; Prothrombin Time 13.5 Seconds (9.4-12.1)
[2020-05-11 05:42] LABS: BUN/Creatinine Ratio 48 (6-26); Blood Urea Nitrogen 52 mg/dL (8-23); Calcium 8.7 mg/dL (8.6-10.3); Carbon Dioxide 30 mEq/L (23-29); Chloride 99 mEq/L (98-107); Glucose 217 mg/dL (70-105); Magnesium 1.9 mg/dL (1.6-2.6); Osmolality,Calculated 299 (280-300); Phosphorous 3.2 mg/dL (2.7-4.5); Potassium 4.3 mEq/L (3.5-5.1); Sodium 134 mEq/L (136-145); eGFR For African Americans > 60 (> 60); eGFR For Non-African Americans 51 (> 60)
[2020-05-11] MEDS: *HR* LORazepam 2 MG/ML VIAL IVP PRN ×3 (06:40→10:47)
[2020-05-11] MEDS: Dexmedetomidine HCl 400 MCG/100 ML MLS IVC SCH (07:08)
[2020-05-11] MEDS: Dexamethasone 4 MG/ML VIAL IVP SCH (07:52)
[2020-05-11] MEDS: Furosemide 40 MG/4 ML VIAL IVP SCH (07:52)
[2020-05-11] MEDS: levoFLOXacin 750 MG/150 ML 750 MG/150 ML BAG IVPB SCH (07:52)
[2020-05-11] MEDS: *HR* Enoxaparin 40 MG/0.4 ML SYRINGE SQ SCH (07:54)
[2020-05-11] MEDS: Nystatin POWDER 30 GM BOTTLE TP SCH (07:54)
[2020-05-11] MEDS ORDERED: Norepinephrine 4 MG/254 ML IV.SOLN IVC SCH (08:15)
[2020-05-11 09:32] VITALS: BP 121/70
[2020-05-11] MEDS: Morphine Sulfate 2 MG/ML SYRINGE IVP PRN (09:47)
[2020-05-11] MEDS: Aspirin Enteric Coated 81 MG Tablet PO SCH (09:53)
[2020-05-11] MEDS: Metoprolol XL (24 HR) Succ 50 MG TAB.ER.24H PO SCH (09:54)
[2020-05-11] MEDS ORDERED: *HR* FentaNYL (PF) 100 MCG/2 ML VIAL IVP PRN (10:06)
[2020-05-11] MEDS ORDERED: FentaNYL (PF) 1,000 MCG/100 ML IV.SOLN IVC SCH (10:15)
[2020-05-11] MEDS ORDERED: Morphine Sulfate 2 MG/ML SYRINGE IVP PRN (10:38)
== END 2020-05-11 15:50 | disposition expired | DRG 720 ==
LOC: EMEROOARM 09:45 → 2NENU 09:45 → SUATTDRO 14:42 → 2NENU 14:57
PROVIDERS: ADMIT Internal Medicine; ATTEND Internal Medicine